=== PATIENT | female | born 1995 | race Caucasian/White ===

== ENCOUNTER 2016-12-02 14:57 | Observation (INO) | payer BC ==
[2016-12-02] MEDS ORDERED: Zolpidem 5 MG Tab PO ONE (18:21)
[2016-12-02] MEDS ORDERED: Lactated Ringers 1,000 ML IV SCH ×2 (18:30→19:32)
[2016-12-02] MEDS ORDERED: Acetaminophen 325 MG Tab PO PRN (18:32)
[2016-12-02] MEDS ORDERED: Sodium Chloride 0.9% 10 ML Syringe FLUSH PRN (18:32)
[2016-12-02] MEDS ORDERED: Ondansetron 4 MG/2 ML SDV IV PRN (18:32)
--- NOTE | 2016-12-02 18:43 | PCM.PNLD ---
Labor Progress Note - VS & Meds Vital Signs: Last Vital Signs Temp 36.4 C 12/02/16 17:30 Pulse 80 12/02/16 18:20 Resp 16 12/02/16 18:20 BP 135/69 12/02/16 18:20 Pulse Ox 98 12/02/16 18:20 Active Medications: Current Medications Acetaminophen (Tylenol) 650 mg PO Q4H PRN PRN Reason: Pain (Mild 1-3) and fever Lactated Ringer's (Ringers, Lactated) 1,000 mls @ 999 mls/hr IV BOLUS SOPHY Ondansetron HCl (Zofran) 4 mg IV Q4H PRN PRN Reason: Nausea/Vomiting Sodium Chloride (Saline Flush) 10 ml FLUSH ASDIRECTED PRN PRN Reason: Keep Vein Open Zolpidem Tartrate (Ambien) 10 mg PO ONETIME ONE Stop: 12/02/16 18:22 - Uterine Contractions Uterine Monitoring Mode: External [place] Uterine Resting Tone: Soft - Monitoring Monitor Mode: External Ultrasound - Labor Progress (Free Text) Labor Progress: 12/02/2016 20 yo at 38 3/7 wks gestation came into clinic for routine visit-stated baby had not been moving today. NST done nonreactive BPP done 12/21-decided to send to L&D for monitoring and fluids and will repeat NST throughout night and repeat BPP in am LR bolus and 125ml/hour after FHT monitor NST for 20 minutes every 4hours with VS Up ad cali General Diet
--- NOTE | 2016-12-03 08:55 | PCM.PNLD ---
Labor Progress Note - VS & Meds Vital Signs: Last Vital Signs Temp 36.4 C 12/03/16 03:15 Pulse 79 12/03/16 03:15 Resp 18 12/03/16 03:15 BP 121/65 12/03/16 03:15 Pulse Ox 97 12/03/16 03:15 Active Medications: Current Medications Acetaminophen (Tylenol) 650 mg PO Q4H PRN PRN Reason: Pain (Mild 1-3) and fever Lactated Ringer's (Ringers, Lactated) 1,000 mls @ 125 mls/hr IV ASDIRECTED SOPHY Last Admin: 12/02/16 18:30 Dose: 125 mls/hr Ondansetron HCl (Zofran) 4 mg IV Q4H PRN PRN Reason: Nausea/Vomiting Sodium Chloride (Saline Flush) 10 ml FLUSH ASDIRECTED PRN PRN Reason: Keep Vein Open Discontinued Medications Lactated Ringer's (Ringers, Lactated) 1,000 mls @ 999 mls/hr IV BOLUS [facility] Stop: 12/02/16 19:31 Last Admin: 12/02/16 17:30 Dose: 999 mls/hr Zolpidem Tartrate (Ambien) 10 mg PO ONETIME ONE Stop: 12/02/16 18:22 Last Admin: 12/03/16 05:36 Dose: Not Given - Uterine Contractions Uterine Monitoring Mode: External [place] Contraction Frequency (min): none noted Contraction Duration (sec): 70 Uterine Resting Tone: Soft - Monitoring Monitor Mode: External Ultrasound Heart Rate (FHR) Variability: Moderate (6-25 bmp) Accelerations: Present, 15x15 Decelerations: None Strip Review: Category I - Labor Progress (Free Text) Labor Progress: 12/03/2016 Patient feeling much better throughout night with IV fluids. FHTs reactive and VSS all night Patient states baby is moving all over. We will discharge home and have patient see me for OB check on Friday as long as BPP is improved
[2016-12-03 09:18] VITALS: BP 137/72
--- NOTE | 2016-12-03 09:19 | US ---
OB Ltd 1 or More Fetus, BPP wo NST INDICATION: position. FINDINGS: Single live intrauterine gestation in cephalic presentation. Placenta is situated anterior . Cervix measures 4.9 cm in length. Biophysical profile score is 4/8. No points were given for gross body movement or tone. heart rate measures 128 bpm. YOUSUF measures 13.4 cm. IMPRESSION: 1. Biophysical profile score 4/8. Consider close interval ultrasound follow-up.
--- NOTE | 2016-12-03 09:20 | US ---
BPP w NST INDICATION: BPP 4/8 on 12/03/2016 FINDINGS: Comparison ultrasound 12/02/2016. Single live IUP. Biophysical profile score 8/8. YOUSUF measu res 11 cm. heart rate measures 118 bpm. IMPRESSION: Biophysical profile score 8/8.
== END 2016-12-03 09:38 | disposition home or self-care (01) ==
LOC: JP.US 14:57 → JP.OB 16:47
PROVIDERS: ADMIT Advanced Practice Midwife; ATTEND Advanced Practice Midwife
DX: Z34.03 Encounter for supervision of normal first pregnancy, third trimester (principal); O36.8130 Decreased fetal movements, third trimester, not applicable or unspecified; Z79.899 Other long term (current) drug therapy; O26.899 Other specified pregnancy related conditions, unspecified trimester; M54.5 Low back pain
CPT/HCPCS: 36415; 76815; 76818; 76819; 80053; 80305; 81001; 85027; 96365; 99211; G0378; J7120

== ENCOUNTER 2016-12-17 11:32 | Inpatient (IN) | payer BC ==
[2016-12-17] MEDS ORDERED: Lactated Ringers 500 ML IV ONE (12:29)
[2016-12-17] MEDS ORDERED: Acetaminophen 325 MG Tab PO PRN (12:29)
[2016-12-17] MEDS ORDERED: Ondansetron 4 MG/2 ML SDV IV PRN (12:29)
[2016-12-17] MEDS ORDERED: Sodium Chloride 0.9% 10 ML Syringe FLUSH PRN (12:29)
[2016-12-17] MEDS ORDERED: fentaNYL 100 MCG/2 ML SDV IVPUSH PRN (12:29)
[2016-12-17] MEDS ORDERED: Calcium Carbonate 500 MG Tab.Chew PO PRN (12:29)
[2016-12-17] MEDS ORDERED: Lactated Ringers 1,000 ML IV ONE (12:35)
--- NOTE | 2016-12-17 12:43 | PCM.LDHP ---
L&D History of Present Illness - General Date of Service: 12/17/16 (YURY-12/14/2016) Admit Problem/Dx: Patient Status Order with Admit Dx/Problem 12/17/16 12:29 Patient Status [ADT] Routine Admission Diagnosis/Problem Admission Diagnosis/Problem Source of Information: Patient History Limitations: Reports: No limitations - Related Data Allergies/Adverse Reactions: Allergies Allergy/AdvReac Type Severity Reaction Status Date / Time No Known Allergies Allergy Verified 12/02/16 17:01 Home Medications: Home Meds PNV95/Ferrous Fumarate/FA [ Tablet] 1 tab PO DAILY 12/02/16 [History] Past Medical History - Past Health History Medical/Surgical History: Denies Medical/Surgical History PR[employer]ER History: Reports: Dermatologic History: Reports: Other (see below) Other Dermatologic History: Ellers Danelos Syndrome - Infectious Disease History Infectious Disease History: Reports: Chicken pox - Past Surgical History HEENT Surgical History: Reports: Oral surgery, Other (see below) Other HEENT Surgeries/Procedures: wisdom teeth Social & Family History - Family History Family Medical History: Noncontributory - Tobacco Use Smoking Status *Q: Current Every Day Smoker Years of Tobacco use: 3 Packs/Tins Daily: 0.2 Used Tobacco, but Quit: No Second Hand Smoke Exposure: Yes - Caffeine Use Caffeine Use: Reports: Soda Caffeine Use Comment: 2/day - Recreational Drug Use Recreational Drug Use: Yes Drug Use in Last 12 Months: Yes Recreational Drug Type: Reports: Marijuana/Hashish Recreational Drug Use Frequency: Rarely H&P Review of Systems - Review of Systems: Review Of Systems: See Below General: Reports: no symptoms HEENT: Reports: no symptoms Pulmonary: Reports: No Symptoms Cardiovascular: Reports: no symptoms Gastrointestinal: Reports: No symptoms Genitourinary: Reports: no symptoms Musculoskeletal: Reports: no symptoms Skin: Reports: no symptoms Psychiatric: Reports: no symptoms Neurological: Reports: No Symptoms Hematologic/Lymphatic: Reports: no symptoms Immunologic: Reports: no symptoms L&D Exam - Exam Exam: See Below - Vital Signs Weight: 78.018 kg - OB Specific Contraction Intensity: Moderate to Strong movement: active heart tones: present Heart Rate (FHR) Variability: Moderate (6-25 bmp) Presentation: Vertex Estimated Weight: 7lbs - Granados Score Granados Score Cervix Position: Anterior Granados Score Consistency: Soft Granados Score Effacement: >80% Granados Score Dilation: 3-4 cm Granados Score 's Station: -1 ,0 Granados Score Total: 11 - Exam General: alert, oriented HEENT: PERRLA, Conjunctiva clear, EACs clear, EOMI, Hearing intact, Mucosa moist & pink, Nares patent, Normal nasal septum, Posterior pharynx clear, Pupils equal, Pupils reactive, TMs clear Neck: supple, trachea midline Lungs: Clear to auscultation, Normal respiratory effort Cardiovascular: regular rate, regular rhythm Abdomen: normal bowel sounds, soft Genitourinary: Normal external exam Back Exam: normal inspection, full range of motion Extremities: normal inspection Skin: warm, dry, intact Neurological: cranial nerves intact, reflexes equal bilateral DTR: 2+: patella (L), patella (R) Psychiatric: alert, normal affect, normal mood - Problem List (1) Active labor SNOMED Code(s): 80206745 ICD Code: [id number] - Status: Acute Current Visit: Yes (2) History of biophysical profile with non-stress test SNOMED Code(s): 936049153 ICD Code: Z92.89 - PERSONAL HISTORY OF OTHER MEDICAL TREATMENT Status: Acute Current Visit: No (3) SNOMED Code(s): 93026279 ICD Code: Z33.1 - STATE, INCIDENTAL Status: Acute Current Visit : No Qualifiers: Weeks of gestation: 40 weeks Qualified Code(s): Z3A.40 - 40 weeks gestation of (4) Positive GBS test SNOMED Code(s): 8059038445412, 5510582544426 ICD Code: B95.1 - STREPTOCOCCUS, GROUP B, CAUSING DISEASES CLASSD ELSWHR Status: Acute Current Visit: Yes Problem List Initiated/Reviewed/Updated: Yes Orders Last 24hrs: Active Orders 24 hr Category Date Time Status Patient Status [ADT] Routine ADT 12/17/16 12:29 Ordered Ambulate [RC] PER UNIT ROUTINE Care 12/17/16 12:29 Ordered Bathe Patient [RC] ASDIRECTED Care 12/17/16 12:29 Ordered Communication Order [RC] ASDIRECTED Care 12/17/16 12:29 Ordered Heart Tones [RC] PER UNIT ROUTINE Care 12/17/16 12:29 Ordered Local Anesthetic Infusion Pump [RC] ASDIRECTED Care 12/17/16 12:35 Ordered May Shower [RC] ASDIRECTED Care 12/17/16 12:29 Ordered Notify Provider Vital Signs [RC] PRN Care 12/17/16 12:29 Ordered Notify Provider [RC] PRN Care 12/17/16 12:29 Ordered OB Check [OM.PC] Click to Edit Care 12/17/16 11:38 Ordered PCEA Epidural [RC] ASDIRECTED Care 12/17/16 12:35 Ordered Up ad [place]i [RC] ASDIRECTED Care 12/17/16 12:29 Ordered VTE/DVT Education [RC] Click to Edit Care 12/17/16 12:32 Ordered Vital Signs [RC] PER UNIT ROUTINE Care 12/17/16 12:29 Ordered CBC WITH AUTO DIFF [HEME] Routine Lab 12/17/16 12:29 Ordered UA W/MICROSCOPIC [URIN] Routine Lab 12/17/16 11:39 Uncollected Acetaminophen [Tylenol] Med 12/17/16 12:29 Ordered 650 mg PO Q4H PRN Calcium Carbonate [Tums] Med 12/17/16 12:29 Ordered 1,000 mg PO Q2HR PRN Lactated Ringers [Ringers, Lactated] 1,000 ml Med 12/17/16 12:35 Ordered IV .BOLUS Lactated Ringers [Ringers, Lactated] 500 ml Med 12/17/16 12:29 Ordered IV .BOLUS Ondansetron [Zofran] Med 12/17/16 12:29 Ordered 4 mg IV Q4H PRN Penicillin G Potassium [Pfizerpen] 2.5 millunits Med 12/17/16 16:45 Ordered Sodium Chloride 0.9% [Normal Saline] 100 ml IV Q4H Penicillin G Potassium [Pfizerpen] 5 millunits Med 12/17/16 12:33 Ordered Sodium Chloride 0.9% [Normal Saline] 100 ml IV ONETIME Sodium Chloride 0.9% [Saline Flush] Med 12/17/16 12:29 Ordered 10 ml FLUSH ASDIRECTED PRN fentaNYL [Sublimaze] Med 12/17/16 12:29 Ordered 100 mcg IVPUSH Q1H PRN DVT/VTE Prophylaxis Reflex [OM.PC] Routine Oth 12/17/16 12:29 Ordered Epidural Catheter Management [OM.PC] Routine Oth 12/17/16 12:35 Ordered Saline Lock Insert [OM.PC] Routine Oth 12/17/16 12:29 Ordered Resuscitation Status Routine Resus Stat 12/17/16 12:29 Ordered Medication Orders Acetaminophen (Tylenol) 650 mg PO Q4H PRN PRN Reason: Pain (Mild 1-3) and fever Calcium Carbonate/Glycine (Tums) 1,000 mg PO Q2HR PRN PRN Reason: Indigestion Fentanyl (Sublimaze) 100 mcg IVPUSH Q1H PRN PRN Reason: Pain (moderate 4-6) Lactated Ringer's (Ringers, Lactated) 500 mls @ 500 mls/hr IV .BOLUS ONE Stop: 12/17/16 13:28 Penicillin G Potassium 5 (millunits/ Sodium Chloride) 100 mls @ 100 mls/hr IV ONETIME ONE Stop: 12/17/16 13:32 Penicillin G Potassium 2.5 (millunits/ Sodium Chloride) 100 mls @ 100 mls/hr IV Q4H SOPHY Ondansetron HCl (Zofran) 4 mg IV Q4H PRN PRN Reason: Nausea/Vomiting Sodium Chloride (Saline Flush) 10 ml FLUSH ASDIRECTED PRN PRN Reason: Keep Vein Open Assessment/Plan Comment:: 12/17/2016 20 yo presented to L&D in active labor SVE 3-/0 with bulgy bag Patient cynthia regularly with a category one strip O positive GBS positive Hep B negative HIV negative RPR nonreactive +THC in Plan- Continue to monitor active labor Continue to monitor FHT per protocol Pain medication or epidural per patient request GBS antibiotics PCN G per protocol CBC now UDS now Patient can be up ad cali till epidural Patient can eat regular diet till epidural Anticipate a vaginal delivery
[2016-12-17] MEDS ORDERED: Penicillin G Potassium 5 MILLUNITS in Sodium Chloride 0.9% 100 ML IV ONE ×4 (13:30)
[2016-12-17] MEDS ORDERED: Oxytocin 10 Units/1 ML SDV ONE (14:23)
[2016-12-17] MEDS ORDERED: fentaNYL 100 MCG/2 ML SDV ONE (14:23)
[2016-12-17] MEDS ORDERED: Mineral Oil 10 ML Bottle ONE (14:24)
[2016-12-17] MEDS ORDERED: Lidocaine 1% 50 ML MDV ONE (14:24)
[2016-12-17] MEDS ORDERED: Ropivacaine 100 ML ONE ×2 (14:24→14:40)
[2016-12-17] MEDS ORDERED: Naloxone 0.4 MG/ML SDV ONE (14:24)
[2016-12-17] MEDS ORDERED: Lactated Ringers 1,000 ML IV SCH (15:00)
[2016-12-17] MEDS: ePHEDrine 50 MG/ML SDV ONE ×3 (16:02→19:41)
[2016-12-17] MEDS ORDERED: Naloxone 0.4 MG/ML SDV IVPUSH PRN (16:06)
[2016-12-17] MEDS ORDERED: ePHEDrine 50 MG/ML SDV IVPUSH PRN (16:06)
[2016-12-17] MEDS ORDERED: Ropivacaine 100 ML EPIDUR SCH (16:06)
[2016-12-17] MEDS: Penicillin G Potassium 2.5 MILLUNITS in Sodium Chloride 0.9% 50 ML IV SCH ×2 (16:55→23:02)
[2016-12-17] MEDS ORDERED: Penicillin G Potassium 2.5 MILLUNITS in Sodium Chloride 0.9% 100 ML IV SCH (17:30)
--- NOTE | 2016-12-17 17:37 | PCM.PNLD ---
Labor Progress Note - VS & Meds Vital Signs: Last Vital Signs Temp 36.3 C 12/17/16 17:00 Pulse 79 12/17/16 17:00 Resp 16 12/17/16 17:00 BP 129/69 12/17/16 17:00 Pulse Ox 96 12/17/16 17:00 Active Medications: Current Medications Acetaminophen (Tylenol) 650 mg PO Q4H PRN PRN Reason: Pain (Mild 1-3) and fever Calcium Carbonate/Glycine (Tums) 1,000 mg PO Q2H PRN PRN Reason: Indigestion Ephedrine Sulfate (Ephedrine Sulfate) 5 - 10 mg IVPUSH ASDIRECTED PRN PRN Reason: IF SYSTOLIC BP LESS THAN 100 Fentanyl (Sublimaze) 100 mcg IVPUSH Q1H PRN PRN Reason: Pain (moderate 4-6) Penicillin G Potassium 2.5 (millunits/ Sodium Chloride) 50 mls @ 100 mls/hr IV Q4H SOPHY Last Admin: 12/17/16 16:55 Dose: 100 mls/hr Ropivacaine (Naropin 0.2%) 100 mls @ 0 mls/hr EPIDUR ASDIRECTED SOPHY; Titrate PRN Reason: Protocol Lactated Ringer's (Ringers, Lactated) 1,000 mls @ 125 mls/hr IV ASDIRECTED SOPHY Naloxone HCl (Narcan) 0.1 mg IVPUSH Q5M PRN PRN Reason: IF RESP RATE LESS THAN 6 Ondansetron HCl (Zofran) 4 mg IV Q4H PRN PRN Reason: Nausea/Vomiting Sodium Chloride (Saline Flush) 10 ml FLUSH ASDIRECTED PRN PRN Reason: Keep Vein Open Discontinued Medications Ephedrine Sulfate (Ephedrine Sulfate) Confirm Administered Dose 50 mg .ROUTE .STK-MED ONE Stop: 12/17/16 14:24 Fentanyl (Sublimaze) Confirm Administered Dose 100 mcg .ROUTE .STK-MED ONE Stop: 12/17/16 14:24 Lactated Ringer's (Ringers, Lactated) 500 mls @ 500 mls/hr IV .BOLUS ONE Stop: 12/17/16 13:28 Last Admin: 12/17/16 13:30 Dose: 500 mls/hr Lactated Ringer's (Ringers, Lactated) 1,000 mls @ 999 mls/hr IV .BOLUS ONE Stop: 12/17/16 13:35 Last Admin: 12/17/16 12:35 Dose: 999 mls/hr Penicillin G Potassium 5 (millunits/ Sodium Chloride) 100 mls @ 100 mls/hr IV ONETIME ONE Stop: 12/17/16 14:29 Last Admin: 12/17/16 13:35 Dose: 100 mls/hr Ropivacaine (Naropin 0.2%) Confirm Administered Dose 100 mls @ as directed .ROUTE .STK-MED ONE Stop: 12/17/16 14:25 Ropivacaine (Naropin 0.2%) Confirm Administered Dose 100 mls @ as directed .ROUTE .STK-MED ONE Stop: 12/17/16 14:41 Oxytocin/Sodium Chloride (Pitocin In Ns 20 Units/1,000 Ml) 20 unit in 1,000 mls @ 999 mls/hr IV ONETIME ONE Stop: 12/17/16 17:00 Lidocaine HCl (Xylocaine 1%) Confirm Administered Dose 100 ml .ROUTE .STK-MED ONE Stop: 12/17/16 14:25 Mineral Oil (Muri-Lube) Confirm Administered Dose 10 ml .ROUTE .STK-MED ONE Stop: 12/17/16 14:25 Naloxone HCl (Narcan) Confirm Administered Dose 0.4 mg .ROUTE .STK-MED ONE Stop: 12/17/16 14:25 Oxytocin (Pitocin) Confirm Administered Dose 10 unit .ROUTE .STK-MED ONE Stop: 12/17/16 14:24 - Uterine Contractions Uterine Monitoring Mode: External [place] Contraction Frequency (min): 2-3.5 Contraction Duration (sec): 50-90 Contraction Intensity: Moderate Uterine Resting Tone: Soft - Monitoring Monitor Mode: External Ultrasound Heart Rate (FHR) Variability: Moderate (6-25 bmp) - Vaginal Exam Dilation (cm): 8-9 Effacement (Percent): 100 Station: 0 Cervical Position: Midposition Sterile Vaginal Exam Performed By: Kimmy Farias - Labor Progress (Free Text) Labor Progress: 12/17/2016 SVE-8-9/100/0 AROM @ this time-particulate meconium noted Pain controlled well with epidural Two doses of PCN G in for GBS positive FHTs category one Contraction pattern consistent Continue to monitor FHTs Continue to monitor Ctx pattern Anticipate a vaginal delivery
[2016-12-17] MEDS ORDERED: Methylergonovine 0.2 MG/1 ML Amp IM PRN (19:07)
[2016-12-17] MEDS ORDERED: cefTRIAXone 2 GM in Sodium Chloride 0.9% 50 ML IV ONE (19:07)
[2016-12-17] MEDS ORDERED: Misoprostol 50 MCG (1/2 of 100 MCG) Tab RECTAL ONE (19:07)
[2016-12-17] MEDS ORDERED: Methylergonovine 0.2 MG/1 ML Amp ONE (19:10)
[2016-12-17] MEDS ORDERED: Misoprostol 200 MCG Tab ONE (19:12)
[2016-12-17] MEDS ORDERED: cefTRIAXone 1 GM Vial ONE (19:19)
[2016-12-17] MEDS ORDERED: Sodium Chloride 0.9% 100 ML ONE (19:20)
[2016-12-17] MEDS ORDERED: Docusate Sodium 100 MG Cap PO PRN (19:57)
[2016-12-17] MEDS ORDERED: Lanolin 100% Cream 40 GM Tube TOP PRN (19:57)
[2016-12-17] MEDS ORDERED: Benzocaine 20% Top Spray 56 GM Bottle TOP PRN (19:57)
[2016-12-17] MEDS ORDERED: Witch Hazel Medicated Pads 100/Jar TOP PRN (19:57)
--- NOTE | 2016-12-17 20:20 | PCM.DEL ---
L & D Note - General Info Date of Service: 12/17/16 Mother's Due Date: 12/14/16 - Delivery Note Labor: spontaneous Delivery Outcome: Livebirth Infant Delivery Method: Spontaneous Vaginal Delivery Infant Delivery Mode: Vacuum Extraction Presentation: Left Occiput Anterior (MICHAEL) Nuchal cord: none Anesthesia Type: Epidural Amniotic Fluid Description: Meconium stained Laceration: labial, other (v shaped side wal) Suture type: chromic Suture size: 3-0 Placenta: intact, manual removal Cord: 3 vessels Estimated blood loss: 750 Resuscitation needed: No [place]: bulb syringe, stimulated, warmed, blanket used Post Delivery Events: Hemorrhage Second Stage Interventions: Reports: Second Nurse Reviewed Contraction Pattern, Second Nurse Reviewed Heart Tones, Encouragement Given, Pushing Effectively Delivery Comments (Free Text/Narrative):: 12/17/2016 20 yo G1 now P1 at 40 3/7 wks gestation delivered a viable male @1907 with assist of the vacuum times two pulls with no pop-offs in MICHAEL position. APGARS 9/9/9, Weight 20 inches, double clamped cord and to warmer for assessment for vacuum use and thick meconium Infant bulb suctioned, stimulated, and warmed and began to cry vigorously Placenta then manually removed due to hemorrhage-intact, 3 vessel cord, with little wartons jelly Oxytocin wide open per protocol Methergine IM per protocol Cytotec 800mg rectal per protocol EBL 750ml Large left sidewall repaired in usual fashion with 3.0 vicryl Large right labial repaired in usual fashion with 3.0 vicryl NO lacerations noted of perinium, rectum, or cervix Mother now stable in labor and delivery room with stable skin to skin Vacuum Extractor Progress Note - Alternative Labor Strategies Considered Alternative labor strategies considered:: Reports: yes Strategies considered:: Reports: Contraction intensity adequate, Position changes used to facilitate rotation & descent, Empty bladder, Rest Indications considered:: Reports: yes Indications:: Reports: Suspicion of immediate or potential compromise Time out:: Reports: yes - Patient Prepared Patient prepared:: Reports: yes Informed consent:: Reports: Yes Risks: Reports: yes Risks include:: Reports: Laceration, Shoulder dystocia, Maternal injury, Other Anesthesia/analgesia adequate:: Reports: yes - Probability of Success High probability of success:: Reports: yes weight estimated:: Reports: AGA Patient diabetic:: Reports: no Pelvis adequate:: Reports: yes Asynclitic:: Reports: no - Application Time Maximum application time & number of pop-offs predetermined:: Reports: no Type of vacuum used:: Reports: Cup: Soft Vacuum Extraction: Successful - Exit Strategy Exit strategy available:: Reports: yes - General Info Date of Service: 12/17/16 Admission Dx/Problem (Free Text): Patient Status Order with Admit Dx/Problem 12/17/16 12:29 Patient Status [ADT] Routine Admission Diagnosis/Problem Admission Diagnosis/Problem Functional Status: Reports: pain controlled - Review of Systems General: Reports: No Symptoms HEENT: Reports: no symptoms Pulmonary: Reports: no symptoms Cardiovascular: Reports: No Symptoms Gastrointestinal: Reports: No symptoms Genitourinary: Reports: no symptoms Musculoskeletal: Reports: no symptoms Skin: Reports: no symptoms Neurological: Reports: No Symptoms Psychiatric: Reports: no symptoms - Patient Data Vitals - most recent: Last Vital Signs Temp 36.6 C 12/17/16 18:30 Pulse 69 12/17/16 18:30 Resp 16 12/17/16 18:30 BP 122/72 12/17/16 18:30 Pulse Ox 96 12/17/16 18:30 Weight - most recent: 78.018 kg I&O - last 24 hours: Intake & Output 12/17/16 12/17/16 12/17/16 06:59 14:59 22:59 Intake Total 2098 Output Total 150 Balance 1948 Lab Results last 24 hrs: Laboratory Results - last 24 hr 12/17/16 12/17/16 12/17/16 Range/Units 12:42 13:10 13:10 WBC 16.3 H (4.5-11.0) K/uL RBC 4.08 (3.30-5.50) M/uL Hgb 13.1 (12.0-15.0) g/dL Hct 38.0 (36.0-48.0) % MCV 93 (80-98) fL MCH 32 H (27-31) pg MCHC 35 (32-36) % Plt Count 223 (150-400) K/uL Neut % (Auto) 82 H (36-66) % Lymph % (Auto) 11 L (24-44) % [place] % (Auto) 6 (2-6) % Eos % (Auto) 0 L (2-4) % Baso % (Auto) 0 (0-1) % Urine Color Yellow Urine Appearance Clear Urine pH 7.0 (4.5-8.0) Ur Specific [place] 1.010 (1.008-1.030) Urine Protein Negative (NEGATIVE) mg/dL Urine Glucose (UA) Normal (NEGATIVE) mg/dL Urine Ketones Negative (NEGATIVE) mg/dL Urine Occult Blood Negative (NEGATIVE) Urine Nitrite Negative (NEGATIVE) Urine Bilirubin Negative (NEGATIVE) Urine Urobilinogen 1 (NORMAL) mg/dL Ur Leukocyte Esterase Negative (NEGATIVE) Urine RBC 0-5 (0-5) Urine WBC 0-5 (0-5) Ur Epithelial Cells Moderate Amorphous Sediment Not seen Urine Bacteria Moderate Urine Mucus Moderate Urine Opiates Screen Negative (NEGATIVE) Ur Oxycodone Screen Negative (NEGATIVE) Urine Methadone Screen Negative (NEGATIVE) Ur Propoxyphene Screen Negative (NEGATIVE) Ur Barbiturates Screen Negative (NEGATIVE) Ur Tricyclics Screen Negative (NEGATIVE) Ur Phencyclidine Scrn Negative (NEGATIVE) Ur Amphetamine Screen Negative (NEGATIVE) U Methamphetamines Scrn Negative (NEGATIVE) Urine MDMA Screen Negative (NEGATIVE) U Benzodiazepines Scrn Negative (NEGATIVE) U Cocaine Metab Screen Negative (NEGATIVE) U Marijuana (THC) Screen Positive H (NEGATIVE) Med Orders - Current: Current Medications Acetaminophen (Tylenol) 650 mg PO Q4H PRN PRN Reason: Pain (Mild 1-3) and fever Hydrocodone Bitart/Acetaminophen ([place] 325-5 Mg) 1 - 2 tab PO Q4H PRN PRN Reason: Pain (moderate 4-6) Benzocaine (Clgy-L-Kmexkis 20% [place]) 0 gm TOP Q4H PRN PRN Reason: Perineal Comfort Measure Calcium Carbonate/Glycine (Tums) 1,000 mg PO Q2H PRN PRN Reason: Indigestion Docusate Sodium (Colace) 100 mg PO BID PRN PRN Reason: Constipation Emollient Ointment (Lansinoh Hpa) 1 gm TOP ASDIRECTED PRN PRN Reason: Sore Nipples Ephedrine Sulfate (Ephedrine Sulfate) 5 - 10 mg IVPUSH ASDIRECTED PRN PRN Reason: IF SYSTOLIC BP LESS THAN 100 Fentanyl (Sublimaze) 100 mcg IVPUSH Q1H PRN PRN Reason: Pain (moderate 4-6) Ferrous Sulfate (Ferrous Sulfate) 325 mg PO WITHBREAKFAST [facility] Penicillin G Potassium 2.5 (millunits/ Sodium Chloride) 50 mls @ 100 mls/hr IV Q4H [facility] Last Admin: 12/17/16 16:55 Dose: 100 mls/hr Ropivacaine (Naropin 0.2%) 100 mls @ 0 mls/hr EPIDUR ASDIRECTED [facility]; Titrate PRN Reason: Protocol Lactated Ringer's (Ringers, Lactated) 1,000 mls @ 125 mls/hr IV ASDIRECTED [facility] Last Admin: 12/17/16 17:53 Dose: 125 mls/hr Ceftriaxone Sodium 2 gm/ (Sodium Chloride) 50 mls @ 100 mls/hr IV ONETIME ONE Stop: 12/17/16 19:36 Ibuprofen (Motrin) 600 mg PO Q4H PRN PRN Reason: mild pain or fever Methylergonovine Maleate (Methergine) 0.2 mg IM Q4H PRN PRN Reason: Bleeding Misoprostol (Cytotec) 800 mcg RECTAL ONETIME ONE Stop: 12/17/16 19:08 Naloxone HCl (Narcan) 0.1 mg IVPUSH Q5M PRN PRN Reason: IF RESP RATE LESS THAN 6 Ondansetron HCl (Zofran) 4 mg IV Q4H PRN PRN Reason: Nausea/Vomiting Prenat Multivit/Geospatial Technologist/Iron/Folic Ac ( Plus Iron) 1 each PO DAILY [facility] Sodium Chloride (Saline Flush) 10 ml FLUSH ASDIRECTED PRN PRN Reason: Keep Vein Open [place] (Tucks) 1 pad TOP ASDIRECTED PRN PRN Reason: Hemorrhoids Discontinued Medications Ceftriaxone Sodium (Rocephin) Confirm Administered Dose 2 gm .ROUTE .STK-MED ONE Stop: 12/17/16 19:20 Last Admin: 12/17/16 19:29 Dose: 2 gm Ephedrine Sulfate (Ephedrine Sulfate) Confirm Administered Dose 50 mg .ROUTE .STK-MED ONE Stop: 12/17/16 14:24 Last Admin: 12/17/16 19:41 Dose: Not Given Fentanyl (Sublimaze) Confirm Administered Dose 100 mcg .ROUTE .STK-MED ONE Stop: 12/17/16 14:24 Last Admin: 12/17/16 19:41 Dose: Not Given Lactated Ringer's (Ringers, Lactated) 500 mls @ 500 mls/hr IV .BOLUS ONE Stop: 12/17/16 13:28 Last Admin: 12/17/16 13:30 Dose: 500 mls/hr Lactated Ringer's (Ringers, Lactated) 1,000 mls @ 999 mls/hr IV .BOLUS ONE Stop: 12/17/16 13:35 Last Admin: 12/17/16 12:35 Dose: 999 mls/hr Penicillin G Potassium 5 (millunits/ Sodium Chloride) 100 mls @ 100 mls/hr IV ONETIME ONE Stop: 12/17/16 14:29 Last Admin: 12/17/16 13:35 Dose: 100 mls/hr Ropivacaine (Naropin 0.2%) Confirm Administered Dose 100 mls @ as directed .ROUTE .STK-MED ONE Stop: 12/17/16 14:25 Last Admin: 12/17/16 19:41 Dose: Not Given Ropivacaine (Naropin 0.2%) Confirm Administered Dose 100 mls @ as directed .ROUTE .STK-MED ONE Stop: 12/17/16 14:41 Oxytocin/Sodium Chloride (Pitocin In Ns 20 Units/1,000 Ml) 20 unit in 1,000 mls @ 999 mls/hr IV ONETIME ONE Stop: 12/17/16 17:00 Last Admin: 12/17/16 19:08 Dose: 999 mls/hr Sodium Chloride (Normal Saline) Confirm Administered Dose 100 mls @ as directed .ROUTE .STK-MED ONE Stop: 12/17/16 19:21 Last Admin: 12/17/16 19:42 Dose: Not Given Lidocaine HCl (Xylocaine 1%) Confirm Administered Dose 100 ml .ROUTE .STK-MED ONE Stop: 12/17/16 14:25 Last Admin: 12/17/16 19:42 Dose: Not Given Methylergonovine Maleate (Methergine) Confirm Administered Dose 0.2 mg .ROUTE .STK-MED ONE Stop: 12/17/16 19:11 Last Admin: 12/17/16 19:14 Dose: 0.2 mg Mineral Oil (Muri-Lube) Confirm Administered Dose 10 ml .ROUTE .STK-MED ONE Stop: 12/17/16 14:25 Last Admin: 12/17/16 19:42 Dose: Not Given Misoprostol (Cytotec) Confirm Administered Dose 800 mcg .ROUTE .STK-MED ONE Stop: 12/17/16 19:13 Last Admin: 12/17/16 19:16 Dose: 800 mcg Naloxone HCl (Narcan) Confirm Administered Dose 0.4 mg .ROUTE .STK-MED ONE Stop: 12/17/16 14:25 Last Admin: 12/17/16 19:42 Dose: Not Given Oxytocin (Pitocin) Confirm Administered Dose 10 unit .ROUTE .STK-MED ONE Stop: 12/17/16 14:24 Last Admin: 12/17/16 19:41 Dose: Not Given - Exam General: alert, oriented HEENT: Pupils equal, Pupils reactive, EOMI, Mucous membr. moist/pink Neck: supple Lungs: Clear to auscultation, Normal respiratory effort Cardiovascular: Regular Rate, Regular Rhythm Abdomen: bowel sounds present, soft, no tenderness, no distension (Female) Exam: Normal external exam, Normal speculum exam, Normal bimanual exam, Enlarged uterus, Uterine tenderness, Vaginal bleeding, Vaginal tears ( repaired) Back Exam: normal inspection, full range of motion Extremities: no edema Skin: warm, dry, intact Wound/Incisions: healing well Neurological: no new focal deficit Psy/Mental Status: alert, normal affect, normal mood - Problem List & Annotations (1) Active labor SNOMED Code(s): 57421096 Code(s): NAV2363 - Status: Acute Current Visit: Yes (2) History of biophysical profile with non-stress test SNOMED Code(s): 916073755 Code(s): Z92.89 - PERSONAL HISTORY OF OTHER MEDICAL TREATMENT Status: Acute Current Visit: No (3) SNOMED Code(s): 33911110 Code(s): Z33.1 - STATE, INCIDENTAL Status: Acute Current Visit: No Qualifiers: Weeks of gestation: 40 weeks Qualified Code(s): Z3A.40 - 40 weeks gestation of (4) Positive GBS test SNOMED Code(s): 8919596821144, 7122297659025 Code(s): B95.1 - STREPTOCOCCUS, GROUP B, CAUSING DISEASES [facility] Status: Acute Current Visit: Yes (5) Perineal laceration during delivery SNOMED Code(s): 930307573 Code(s): O70.9 - PERINEAL LACERATION DURING DELIVERY, UNSPECIFIED Status: Acute Current Visit: Yes (6) Thick meconium stained amniotic fluid SNOMED Code(s): 600181904 Code(s): P96.83 - MECONIUM STAINING Status: Acute Current Visit: Yes (7) hemorrhage SNOMED Code(s): 00974210 Code(s): O72.1 - OTHER IMMEDIATE HEMORRHAGE Status: Acute Current Visit: Yes (8) Placenta, retained SNOMED Code(s): 568998462 Code(s): O73.0 - RETAINED PLACENTA WITHOUT HEMORRHAGE Status: Acute Current Visit: Yes Annotation/Comment:: Manual removal done - Problem List Review Problem List Initiated/Reviewed/Updated: Yes - My Orders Last 24 Hours: My Active Orders 12/17/16 11:38 OB Check [OM.PC] Click to Edit 12/17/16 12:29 Patient Status [ADT] Routine Ambulate [RC] PER UNIT ROUTINE Bathe Patient [RC] ASDIRECTED Communication Order [RC] ASDIRECTED Heart Tones [RC] PER UNIT ROUTINE May Shower [RC] ASDIRECTED Notify Provider Vital Signs [RC] PRN Notify Provider [RC] PRN Up ad [place] [RC] ASDIRECTED Vital Signs [RC] PER UNIT ROUTINE Acetaminophen [Tylenol] 650 mg PO Q4H PRN Calcium Carbonate [Tums] 1,000 mg PO Q2H PRN Ondansetron [Zofran] 4 mg IV Q4H PRN Sodium Chloride 0.9% [Saline Flush] 10 ml FLUSH ASDIRECTED PRN fentaNYL [Sublimaze] 100 mcg IVPUSH Q1H PRN DVT/VTE Prophylaxis Reflex [OM.PC] Routine Saline Lock Insert [OM.PC] Routine Resuscitation Status Routine 12/17/16 12:32 VTE/DVT Education [RC] Click to Edit 12/17/16 12:35 Local Anesthetic Infusion Pump [RC] ASDIRECTED PCEA Epidural [RC] ASDIRECTED Epidural Catheter Management [OM.PC] Routine 12/17/16 15:00 Lactated Ringers [Ringers, Lactated] 1,000 ml IV ASDIRECTED 12/17/16 17:30 Penicillin G Potassium [Pfizerpen] 2.5 millunits Sodium Chloride 0.9% [Normal Saline] 50 ml IV Q4H 12/17/16 19:07 Patient Status [ADT] Routine Methylergonovine [Methergine] 0.2 mg IM Q4H PRN Misoprostol [Cytotec] 800 mcg RECTAL ONETIME ONE cefTRIAXone [Rocephin] 2 gm Sodium Chloride 0.9% [Normal Saline] 50 ml IV ONETIME 12/17/16 19:57 Communication Order [RC] ROUTINE Vital Signs [RC] PFP Consult to Home Health [CONS] Routine Acetaminophen/HYDROcodone [[place] 325-5 MG] 1 - 2 tab PO Q4H PRN Benzocaine [Pceu-V-Jydcxdn 20% [place]] See Dose Instructions TOP Q4H PRN Docusate Sodium [Colace] 100 mg PO BID PRN Ibuprofen [Motrin] 600 mg PO Q4H PRN Lanolin [Lansinoh HPA] 1 gm TOP ASDIRECTED PRN [place] [Tucks] 1 pad TOP ASDIRECTED PRN Assess Lochia [WOMSER] Per Unit Routine Assess Uterine Involution [WOMSER] Per Unit Routine 12/17/16 19:59 Ice Therapy [OM.PC] Per Unit Routine Perineal Care [OM.PC] Per Unit Routine Sitz Bath [OM.PC] Per Unit Routine 12/18/16 06:00 CBC WITH AUTO DIFF [HEME] Routine 12/18/16 08:00 Ferrous Sulfate 325 mg PO WITHBREAKFAST 12/18/16 09:00 Vit with Ca/FA/Iron [ Plus Iron] 1 each PO DAILY - Assessment Assessment:: 12/17/2016 20 yo G1 now P1 Normal Vaginal Delivery assisted by vacuum Hemorrhage Manual placenta removal Large left sidewall repaired Large right labial NO lacerations noted of perinium, rectum, or cervix GBS positive treated O positive - Plan Plan:: 12/17/2016 20 yo presented to L&D in active labor SVE 3-/0 with bulgy bag Patient cynthia regularly with a category one strip O positive GBS positive Hep B negative HIV negative RPR nonreactive +THC in Plan- Continue to monitor active labor Continue to monitor FHT per protocol Pain medication or epidural per patient request GBS antibiotics PCN G per protocol CBC now UDS now Patient can be up ad cali till epidural Patient can eat regular diet till epidural Anticipate a vaginal delivery 12/17/2016 Routine Cares Watch bleeding closely CBC in am Rocephin IV-for manual removal Support and encourage Ice, tucks, dermoblast to suture area Iron to be started BID tomorrow Stool softeners BID prn Plan discharge at 48hrs GBS positive
[2016-12-17] MEDS: Acetaminophen/HYDROcodone 325-5 MG Tab PO PRN (21:10)
[2016-12-17] MEDS: Ibuprofen 600 MG Tab PO PRN (21:10)
--- NOTE | 2016-12-17 21:41 | ANES ---
DATE OF SERVICE: 12/17/2016 Ms. Sanford is a 20-year-old female patient, up in the Labor and Delivery unit in active labor. She is approximately 5 cm with her 1st baby and would like a labor epidural. The risk and benefits of the procedure were explained to the patient. She wished to proceed with a labor epidural. She was placed in a sitting position. Her back was prepped x3 with Betadine 1% lidocaine skin local was used. The epidural was placed at L2-3 using a 17-gauge Tuohy needle in loss of resistance technique. The epidural had very good feel throughout. The epidural space was easily identified. A catheter was threaded 12 cm at the skin. There was negative CSF, negative blood, and negative paresthesias noted via the catheter. A 1.5% lidocaine with epinephrine test dose was given and this test dose was negative. The catheter was then secured with Tegaderm and tape and the patient was placed in supine position. A 12 mL bolus of 0.2% ropivacaine was given. Her vital signs remained stable after the bolus and she got good relief. A 0.2% ropivacaine drip was started at 12 mL per hour. She tolerated the procedure very nicely. We will continue to monitor her throughout her Labor and Delivery stay. Rashawn Nunez CRNA /[id number]
[2016-12-18] MEDS: Acetaminophen/HYDROcodone 325-5 MG Tab PO PRN ×4 (00:43→19:38)
[2016-12-18] MEDS: Penicillin G Potassium 2.5 MILLUNITS in Sodium Chloride 0.9% 50 ML IV SCH ×2 (04:06→13:56)
[2016-12-18] MEDS ORDERED: fentaNYL 100 MCG/2 ML SDV ONE (11:30)
[2016-12-18] MEDS ORDERED: Lidocaine 1% 50 ML MDV ONE (13:13)
[2016-12-18] MEDS ORDERED: Bupivacaine 0.5% 50 ML MDV ONE (13:13)
[2016-12-18] MEDS ORDERED: Lidocaine 1% with EPINEPHrine 1:100,000 50 ML MDV ONE (13:13)
[2016-12-18] MEDS ORDERED: Propofol 200 MG/20 ML SDV ONE ×2 (14:14→14:15)
--- NOTE | 2016-12-18 14:34 | PCM.PNPP ---
- General Info Date of Service: 12/18/16 (PPD 1) Admission Dx/Problem (Free Text): Patient Status Order with Admit Dx/Problem 12/17/16 12:29 Patient Status [ADT] Routine Admission Diagnosis/Problem Admission Diagnosis/Problem Functional Status: Reports: pain controlled - Review of Systems General: Reports: No Symptoms HEENT: Reports: no symptoms Pulmonary: Reports: no symptoms Cardiovascular: Reports: No Symptoms Gastrointestinal: Reports: No symptoms Genitourinary: Reports: no symptoms Musculoskeletal: Reports: no symptoms Skin: Reports: no symptoms Neurological: Reports: No Symptoms Psychiatric: Reports: no symptoms - Patient Data Vital Signs - most recent: Last Vital Signs Temp 97.7 F 12/18/16 07:00 Pulse 69 12/18/16 07:00 Resp 14 12/18/16 07:00 BP 109/67 12/18/16 07:00 Pulse Ox 96 12/18/16 07:00 Weight - most recent: 172 lb I&O - last 24 hours: Intake & Output 12/17/16 12/18/16 12/18/16 22:59 06:59 14:59 Intake Total 3401 Output Total 150 Balance 3251 Lab Results - last 24 hrs: Laboratory Results - last 24 hr 12/18/16 Range/Units 05:57 WBC 15.9 H (4.5-11.0) K/uL RBC 3.07 L (3.30-5.50) M/uL Hgb 9.8 L D (12.0-15.0) g/dL Hct 29.1 L (36.0-48.0) % MCV 95 (80-98) fL MCH 32 H (27-31) pg MCHC 34 (32-36) % Plt Count 204 (150-400) K/uL Neut % (Auto) 78 H (36-66) % Lymph % (Auto) 14 L (24-44) % [place] % (Auto) 7 H (2-6) % Eos % (Auto) 1 L (2-4) % Baso % (Auto) 0 (0-1) % Med Orders - Current: Current Medications Acetaminophen (Tylenol) 650 mg PO Q4H PRN PRN Reason: Pain (Mild 1-3) and fever Hydrocodone Bitart/Acetaminophen ([place] 325-5 Mg) 1 - 2 tab PO Q4H PRN PRN Reason: Pain (moderate 4-6) Last Admin: 12/18/16 07:43 Dose: 2 tab Benzocaine ([id number] 20% [place]) 0 gm TOP Q4H PRN PRN Reason: Perineal Comfort Measure Last Admin: 12/17/16 21:11 Dose: 1 spray Calcium Carbonate/Glycine (Tums) 1,000 mg PO Q2H PRN PRN Reason: Indigestion Docusate Sodium (Colace) 100 mg PO BID PRN PRN Reason: Constipation Emollient Ointment (Lansinoh Hpa) 1 gm TOP ASDIRECTED PRN PRN Reason: Sore Nipples Last Admin: 12/17/16 21:11 Dose: 1 applic Fentanyl (Sublimaze) 100 mcg IVPUSH Q1H PRN PRN Reason: Pain (moderate 4-6) Ferrous Sulfate (Ferrous Sulfate) 325 mg PO WITHBREAKFAST SOPHY Lactated Ringer's (Ringers, Lactated) 1,000 mls @ 125 mls/hr IV ASDIRECTED [facility] Last Admin: 12/17/16 17:53 Dose: 125 mls/hr Ibuprofen (Motrin) 600 mg PO Q4H PRN PRN Reason: mild pain or fever Last Admin: 12/17/16 21:10 Dose: 600 mg Methylergonovine Maleate (Methergine) 0.2 mg IM Q4H PRN PRN Reason: Bleeding Naloxone HCl (Narcan) 0.1 mg IVPUSH Q5M PRN PRN Reason: IF RESP RATE LESS THAN 6 Ondansetron HCl (Zofran) 4 mg IV Q4H PRN PRN Reason: Nausea/Vomiting Prenat Multivit/[place]/Iron/Folic Ac ( Plus Iron) 1 each PO DAILY [facility] Sodium Chloride (Saline Flush) 10 ml FLUSH ASDIRECTED PRN PRN Reason: Keep Vein Open [place] (Tucks) 1 pad TOP ASDIRECTED PRN PRN Reason: Hemorrhoids Last Admin: 12/17/16 21:12 Dose: 1 disk Discontinued Medications Bupivacaine HCl (Marcaine 0.5%) Confirm Administered Dose 50 ml .ROUTE .STK-MED ONE Stop: 12/18/16 13:14 Ceftriaxone Sodium (Rocephin) Confirm Administered Dose 2 gm .ROUTE .STK-MED ONE Stop: 12/17/16 19:20 Last Admin: 12/17/16 19:29 Dose: 2 gm Ephedrine Sulfate (Ephedrine Sulfate) Confirm Administered Dose 50 mg .ROUTE .STK-MED ONE Stop: 12/17/16 14:24 Last Admin: 12/17/16 19:41 Dose: Not Given Ephedrine Sulfate (Ephedrine Sulfate) 5 - 10 mg IVPUSH ASDIRECTED PRN PRN Reason: IF SYSTOLIC BP LESS THAN 100 Fentanyl (Sublimaze) Confirm Administered Dose 100 mcg .ROUTE .STK-MED ONE Stop: 12/17/16 14:24 Last Admin: 12/17/16 19:41 Dose: Not Given Fentanyl (Sublimaze) Confirm Administered Dose 100 mcg .ROUTE .STK-MED ONE Stop: 12/18/16 11:31 Lactated Ringer's (Ringers, Lactated) 500 mls @ 500 mls/hr IV .BOLUS ONE Stop: 12/17/16 13:28 Last Admin: 12/17/16 13:30 Dose: 500 mls/hr Lactated Ringer's (Ringers, Lactated) 1,000 mls @ 999 mls/hr IV .BOLUS ONE Stop: 12/17/16 13:35 Last Admin: 12/17/16 12:35 Dose: 999 mls/hr Penicillin G Potassium 5 (millunits/ Sodium Chloride) 100 mls @ 100 mls/hr IV ONETIME ONE Stop: 12/17/16 14:29 Last Admin: 12/17/16 13:35 Dose: 100 mls/hr Penicillin G Potassium 2.5 (millunits/ Sodium Chloride) 50 mls @ 100 mls/hr IV Q4H SOPHY Last Admin: 12/18/16 13:56 Dose: Not Given Ropivacaine (Naropin 0.2%) Confirm Administered Dose 100 mls @ as directed .ROUTE .STK-MED ONE Stop: 12/17/16 14:25 Last Admin: 12/17/16 19:41 Dose: Not Given Ropivacaine (Naropin 0.2%) Confirm Administered Dose 100 mls @ as directed .ROUTE .STK-MED ONE Stop: 12/17/16 14:41 Oxytocin/Sodium Chloride (Pitocin In Ns 20 Units/1,000 Ml) 20 unit in 1,000 mls @ 999 mls/hr IV ONETIME ONE Stop: 12/17/16 17:00 Last Admin: 12/17/16 19:08 Dose: 999 mls/hr Ropivacaine (Naropin 0.2%) 100 mls @ 0 mls/hr EPIDUR ASDIRECTED SOPHY; Titrate PRN Reason: Protocol Sodium Chloride (Normal Saline) Confirm Administered Dose 100 mls @ as directed .ROUTE .STK-MED ONE Stop: 12/17/16 19:21 Last Admin: 12/17/16 19:42 Dose: Not Given Ceftriaxone Sodium 2 gm/ (Sodium Chloride) 50 mls @ 100 mls/hr IV ONETIME ONE Stop: 12/17/16 19:36 Last Admin: 12/18/16 08:22 Dose: Not Given Lidocaine HCl (Xylocaine 1%) Confirm Administered Dose 100 ml .ROUTE .STK-MED ONE Stop: 12/17/16 14:25 Last Admin: 12/17/16 19:42 Dose: Not Given Lidocaine HCl (Xylocaine 1%) Confirm Administered Dose 50 ml .ROUTE .STK-MED ONE Stop: 12/18/16 13:14 Lidocaine/Epinephrine (Xylocaine 1% With Epinephrine 1:100,000) Confirm Administered Dose 50 ml .ROUTE .STK-MED ONE Stop: 12/18/16 13:14 Last Admin: 12/18/16 13:58 Dose: 7 ml Methylergonovine Maleate (Methergine) Confirm Administered Dose 0.2 mg .ROUTE .STK-MED ONE Stop: 12/17/16 19:11 Last Admin: 12/17/16 19:14 Dose: 0.2 mg Mineral Oil (Muri-Lube) Confirm Administered Dose 10 ml .ROUTE .STK-MED ONE Stop: 12/17/16 14:25 Last Admin: 12/17/16 19:42 Dose: Not Given Misoprostol (Cytotec) Confirm Administered Dose 800 mcg .ROUTE .STK-MED ONE Stop: 12/17/16 19:13 Last Admin: 12/17/16 19:16 Dose: 800 mcg Misoprostol (Cytotec) 800 mcg RECTAL ONETIME ONE Stop: 12/17/16 19:08 Last Admin: 12/17/16 20:39 Dose: Not Given Naloxone HCl (Narcan) Confirm Administered Dose 0.4 mg .ROUTE .STK-MED ONE Stop: 12/17/16 14:25 Last Admin: 12/17/16 19:42 Dose: Not Given Oxytocin (Pitocin) Confirm Administered Dose 10 unit .ROUTE .STK-MED ONE Stop: 12/17/16 14:24 Last Admin: 12/17/16 19:41 Dose: Not Given Propofol (Diprivan 20 Ml) Confirm Administered Dose 200 mg .ROUTE .STK-MED ONE Stop: 12/18/16 14:15 Propofol (Diprivan 20 Ml) Confirm Administered Dose 200 mg .ROUTE .STK-MED ONE Stop: 12/18/16 14:16 - Interaction Infant Disposition, : in Room with Family Infant Interaction: Holding Feeding: Breastfed Infant; Nursed Well Support Person: Significant Other - Recovery Exam Fundal Tone: Firm Fundal Level: 2 Fingerbreadths Below Umbilicus Fundal Placement: Right Lochia Amount: Small, Clots/Tissue Present Lochia Color: Rubra/Red Perineum Description: Edematous, Hemorrhoids Other Perinuem Description: icc applied Episiotomy/Laceration: Not Approximated (left vaginal wall tear which was deep, bleeding, repair incomplete) Bladder Status: Voiding Urinary Elimination: Voided - Exam General: alert, oriented HEENT: Pupils equal Neck: supple Lungs: Clear to auscultation, Normal respiratory effort Cardiovascular: Regular Rate, Regular Rhythm Abdomen: bowel sounds present, soft, no tenderness, no distension Extremities: no edema Skin: warm, dry, intact Wound/Incisions: healing well Neurological: no new focal deficit Psy/Mental Status: alert, normal affect, normal mood - Problem List & Annotations (1) Vaginal tear resulting from childbirth SNOMED Code(s): 555443473 Code(s): O71.4 - OBSTETRIC HIGH VAGINAL LACERATION ALONE Status: Acute Current Visit: Yes (2) History of vacuum extraction assisted delivery SNOMED Code(s): 007292935, 221758083 Code(s): Z98.890 - OTHER SPECIFIED POSTPROCEDURAL STATES Status: Acute Current Visit: Yes (3) Normal vaginal delivery SNOMED Code(s): 31963950 Code(s): O80 - ENCOUNTER FOR FULL-TERM UNCOMPLICATED DELIVERY Status: Acute Current Visit: Yes (4) Perineal laceration during delivery SNOMED Code(s): 757606474 Code(s): O70.9 - PERINEAL LACERATION DURING DELIVERY, UNSPECIFIED Status: Acute Current Visit: Yes (5) hemorrhage SNOMED Code(s): 21318555 Code(s): O72.1 - OTHER IMMEDIATE HEMORRHAGE Status: Acute Current Visit: Yes (6) Placenta, retained SNOMED Code(s): 845968558 Code(s): O73.0 - RETAINED PLACENTA WITHOUT HEMORRHAGE Status: Acute Current Visit: Yes Qualifiers: Retained placenta detail: complete placenta Qualified Code(s): O73.0 - Retained placenta without hemorrhage Annotation/Comment:: Manual removal done (7) Thick meconium stained amniotic fluid SNOMED Code(s): 020572227 Code(s): P96.83 - MECONIUM STAINING Status: Acute Current Visit: Yes - Problem List Review Problem List Initiated/Reviewed/Updated: Yes - Assessment Assessment:: 12/17/2016 20 yo G1 now P1 Normal Vaginal Delivery assisted by vacuum Hemorrhage Manual placenta removal Large left sidewall repaired Large right labial NO lacerations noted of perinium, rectum, or cervix GBS positive treated O positive 12/18/16 Assessment this morning, bleeding and more clots then normal. digital exam revealed a vaginal wall tear that was deep and bleeding. 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 Draped and area cleansed. inspection of repairs showed incomplete repair in the left vaginal wall. The apex of the laceration was found and a deep stitch was placed. A row of locking sutures were placed. Homeostasis was achieved. inspection of the other labial tears and perineal tear was done. additions stitches were placed on the left labial tear as is was bleeding. Right side looked great. Clots were removed from the interior uterus, as it continued to expelled 3cm size clots. bleeding and clotting subsided. Patient was stable post procedure CBC in am - Plan Plan:: 12/17/2016 20 yo presented to L&D in active labor SVE 3- with bulgy bag Patient cynthia regularly with a category one strip O positive GBS positive Hep B negative HIV negative RPR nonreactive +THC in Plan- Continue to monitor active labor Continue to monitor FHT per protocol Pain medication or epidural per patient request GBS antibiotics PCN G per protocol CBC now UDS now Patient can be up ad cali till epidural Patient can eat regular diet till epidural Anticipate a vaginal delivery 12/17/2016 Routine Cares Watch bleeding closely CBC in am Rocephin IV-for manual removal Support and encourage Ice, tucks, dermoblast to suture area Iron to be started BID tomorrow Stool softeners BID prn Plan discharge at 48hrs GBS positive 12/18/16 CBC in am monitor for bleeding continue other routine cares 30 minutes was spent in the or doing laceration repair by Farnaz Wynn CNM
[2016-12-18] MEDS: Ferrous Sulfate 325 MG Tab PO SCH (15:01)
[2016-12-18] MEDS: Prenatal Multivitamin with Calcium/Folic Acid/Iron Tab PO SCH (15:01)
[2016-12-18] MEDS: Ibuprofen 600 MG Tab PO PRN (19:38)
[2016-12-19] MEDS: Ibuprofen 600 MG Tab PO PRN ×2 (01:14→08:18)
[2016-12-19 08:11] VITALS: BP 115/70
--- NOTE | 2016-12-19 08:17 | PCM.PNPP ---
- General Info Date of Service: 12/19/16 Admission Dx/Problem (Free Text): Patient Status Order with Admit Dx/Problem 12/17/16 12:29 Patient Status [ADT] Routine Admission Diagnosis/Problem Admission Diagnosis/Problem Functional Status: Reports: pain controlled - Review of Systems General: Reports: No Symptoms HEENT: Reports: no symptoms Pulmonary: Reports: no symptoms Cardiovascular: Reports: No Symptoms Gastrointestinal: Reports: No symptoms Genitourinary: Reports: no symptoms Musculoskeletal: Reports: no symptoms Skin: Reports: no symptoms Neurological: Reports: No Symptoms Psychiatric: Reports: no symptoms - General Info Date of Service: 12/19/16 - Patient Data Vital Signs - most recent: Last Vital Signs Temp 36.4 C 12/19/16 08:00 Pulse 79 12/19/16 08:00 Resp 16 12/19/16 08:00 BP 115/70 12/19/16 08:00 Pulse Ox 99 12/19/16 08:00 Weight - most recent: 78.018 kg Lab Results - last 24 hrs: Laboratory Results - last 24 hr 12/19/16 Range/Units 06:59 WBC 10.9 (4.5-11.0) K/uL RBC 2.57 L (3.30-5.50) M/uL Hgb 8.4 L (12.0-15.0) g/dL Hct 25.1 L (36.0-48.0) % MCV 98 (80-98) fL MCH 33 H (27-31) pg MCHC 34 (32-36) % Plt Count 180 (150-400) K/uL Med Orders - Current: Current Medications Acetaminophen (Tylenol) 650 mg PO Q4H PRN PRN Reason: Pain (Mild 1-3) and fever Hydrocodone Bitart/Acetaminophen ([place] 325-5 Mg) 1 - 2 tab PO Q4H PRN PRN Reason: Pain (moderate 4-6) Last Admin: 12/18/16 19:38 Dose: 2 tab Benzocaine (Glek-M-Yhddsdo 20% [place]) 0 gm TOP Q4H PRN PRN Reason: Perineal Comfort Measure Last Admin: 12/17/16 21:11 Dose: 1 spray Calcium Carbonate/Glycine (Tums) 1,000 mg PO Q2H PRN PRN Reason: Indigestion Docusate Sodium (Colace) 100 mg PO BID PRN PRN Reason: Constipation Last Admin: 12/18/16 15:03 Dose: 100 mg Emollient Ointment (Lansinoh Hpa) 1 gm TOP ASDIRECTED PRN PRN Reason: Sore Nipples Last Admin: 12/17/16 21:11 Dose: 1 applic Fentanyl (Sublimaze) 100 mcg IVPUSH Q1H PRN PRN Reason: Pain (moderate 4-6) Ferrous Sulfate (Ferrous Sulfate) 325 mg PO WITHBREAKFAST [facility] Last Admin: 12/18/16 15:01 Dose: 325 mg Lactated Ringer's (Ringers, Lactated) 1,000 mls @ 125 mls/hr IV ASDIRECTED [facility] Last Admin: 12/17/16 17:53 Dose: 125 mls/hr Ibuprofen (Motrin) 600 mg PO Q4H PRN PRN Reason: mild pain or fever Last Admin: 12/19/16 01:14 Dose: 600 mg Methylergonovine Maleate (Methergine) 0.2 mg IM Q4H PRN PRN Reason: Bleeding Naloxone HCl (Narcan) 0.1 mg IVPUSH Q5M PRN PRN Reason: IF RESP RATE LESS THAN 6 Ondansetron HCl (Zofran) 4 mg IV Q4H PRN PRN Reason: Nausea/Vomiting Prenat Multivit/[place]/Iron/Folic Ac ( Plus Iron) 1 each PO DAILY [facility] Last Admin: 12/18/16 15:01 Dose: 1 each Sodium Chloride (Saline Flush) 10 ml FLUSH ASDIRECTED PRN PRN Reason: Keep Vein Open [place] (Tucks) 1 pad TOP ASDIRECTED PRN PRN Reason: Hemorrhoids Last Admin: 12/17/16 21:12 Dose: 1 disk Discontinued Medications Bupivacaine HCl (Marcaine 0.5%) Confirm Administered Dose 50 ml .ROUTE .STK-MED ONE Stop: 12/18/16 13:14 Ceftriaxone Sodium (Rocephin) Confirm Administered Dose 2 gm .ROUTE .STK-MED ONE Stop: 12/17/16 19:20 Last Admin: 12/17/16 19:29 Dose: 2 gm Ephedrine Sulfate (Ephedrine Sulfate) Confirm Administered Dose 50 mg .ROUTE .STK-MED ONE Stop: 12/17/16 14:24 Last Admin: 12/17/16 19:41 Dose: Not Given Ephedrine Sulfate (Ephedrine Sulfate) 5 - 10 mg IVPUSH ASDIRECTED PRN PRN Reason: IF SYSTOLIC BP LESS THAN 100 Fentanyl (Sublimaze) Confirm Administered Dose 100 mcg .ROUTE .STK-MED ONE Stop: 12/17/16 14:24 Last Admin: 12/17/16 19:41 Dose: Not Given Fentanyl (Sublimaze) Confirm Administered Dose 100 mcg .ROUTE .STK-MED ONE Stop: 12/18/16 11:31 Lactated Ringer's (Ringers, Lactated) 500 mls @ 500 mls/hr IV .BOLUS ONE Stop: 12/17/16 13:28 Last Admin: 12/17/16 13:30 Dose: 500 mls/hr Lactated Ringer's (Ringers, Lactated) 1,000 mls @ 999 mls/hr IV .BOLUS ONE Stop: 12/17/16 13:35 Last Admin: 12/17/16 12:35 Dose: 999 mls/hr Penicillin G Potassium 5 (millunits/ Sodium Chloride) 100 mls @ 100 mls/hr IV ONETIME ONE Stop: 12/17/16 14:29 Last Admin: 12/17/16 13:35 Dose: 100 mls/hr Penicillin G Potassium 2.5 (millunits/ Sodium Chloride) 50 mls @ 100 mls/hr IV Q4H SOPHY Last Admin: 12/18/16 13:56 Dose: Not Given Ropivacaine (Naropin 0.2%) Confirm Administered Dose 100 mls @ as directed .ROUTE .STK-MED ONE Stop: 12/17/16 14:25 Last Admin: 12/17/16 19:41 Dose: Not Given Ropivacaine (Naropin 0.2%) Confirm Administered Dose 100 mls @ as directed .ROUTE .STK-MED ONE Stop: 12/17/16 14:41 Oxytocin/Sodium Chloride (Pitocin In Ns 20 Units/1,000 Ml) 20 unit in 1,000 mls @ 999 mls/hr IV ONETIME ONE Stop: 12/17/16 17:00 Last Admin: 12/17/16 19:08 Dose: 999 mls/hr Ropivacaine (Naropin 0.2%) 100 mls @ 0 mls/hr EPIDUR ASDIRECTED SOPHY; Titrate PRN Reason: Protocol Sodium Chloride (Normal Saline) Confirm Administered Dose 100 mls @ as directed .ROUTE .STK-MED ONE Stop: 12/17/16 19:21 Last Admin: 12/17/16 19:42 Dose: Not Given Ceftriaxone Sodium 2 gm/ (Sodium Chloride) 50 mls @ 100 mls/hr IV ONETIME ONE Stop: 12/17/16 19:36 Last Admin: 12/18/16 08:22 Dose: Not Given Lidocaine HCl (Xylocaine 1%) Confirm Administered Dose 100 ml .ROUTE .STK-MED ONE Stop: 12/17/16 14:25 Last Admin: 12/17/16 19:42 Dose: Not Given Lidocaine HCl (Xylocaine 1%) Confirm Administered Dose 50 ml .ROUTE .STK-MED ONE Stop: 12/18/16 13:14 Lidocaine/Epinephrine (Xylocaine 1% With Epinephrine 1:100,000) Confirm Administered Dose 50 ml .ROUTE .STK-MED ONE Stop: 12/18/16 13:14 Last Admin: 12/18/16 13:58 Dose: 5 ml Methylergonovine Maleate (Methergine) Confirm Administered Dose 0.2 mg .ROUTE .STK-MED ONE Stop: 12/17/16 19:11 Last Admin: 12/17/16 19:14 Dose: 0.2 mg Mineral Oil (Muri-Lube) Confirm Administered Dose 10 ml .ROUTE .STK-MED ONE Stop: 12/17/16 14:25 Last Admin: 12/17/16 19:42 Dose: Not Given Misoprostol (Cytotec) Confirm Administered Dose 800 mcg .ROUTE .STK-MED ONE Stop: 12/17/16 19:13 Last Admin: 12/17/16 19:16 Dose: 800 mcg Misoprostol (Cytotec) 800 mcg RECTAL ONETIME ONE Stop: 12/17/16 19:08 Last Admin: 12/17/16 20:39 Dose: Not Given Naloxone HCl (Narcan) Confirm Administered Dose 0.4 mg .ROUTE .STK-MED ONE Stop: 12/17/16 14:25 Last Admin: 12/17/16 19:42 Dose: Not Given Oxytocin (Pitocin) Confirm Administered Dose 10 unit .ROUTE .STK-MED ONE Stop: 12/17/16 14:24 Last Admin: 12/17/16 19:41 Dose: Not Given Propofol (Diprivan 20 Ml) Confirm Administered Dose 200 mg .ROUTE .STK-MED ONE Stop: 12/18/16 14:15 Propofol (Diprivan 20 Ml) Confirm Administered Dose 200 mg .ROUTE .STK-MED ONE Stop: 12/18/16 14:16 - Interaction Disposition, : in Room with Family Infant Interaction: Holding Feeding: Breastfed ; Nursed Well Support Person: Significant Other - Recovery Exam Fundal Tone: Firm Fundal Level: 2 Fingerbreadths Below Umbilicus Fundal Placement: Midline Lochia Amount: Small Lochia Color: Rubra/Red Perineum Description: Edematous Other Perinuem Description: icc applied Episiotomy/Laceration: None Bladder Status: Voiding Urinary Elimination: Voided - Exam General: alert, oriented HEENT: Pupils equal Neck: supple Lungs: Clear to auscultation, Normal respiratory effort Cardiovascular: Regular Rate, Regular Rhythm Abdomen: bowel sounds present, soft, no tenderness, no distension Extremities: no edema Skin: warm, dry, intact Wound/Incisions: healing well, other (minimal perineal swelling) Neurological: no new focal deficit Psy/Mental Status: alert, normal affect, normal mood - Problem List & Annotations (1) SNOMED Code(s): 04185225 Code(s): Z33.1 - STATE, INCIDENTAL Status: Resolved Current Visit: No Qualifiers: Weeks of gestation: 40 weeks Qualified Code(s): Z3A.40 - 40 weeks gestation of (2) Positive GBS test SNOMED Code(s): 3459568757157, 7493787338078 Code(s): B95.1 - STREPTOCOCCUS, GROUP B, CAUSING DISEASES CLASSD [id number] Status: Acute Current Visit: Yes (3) Perineal laceration during delivery SNOMED Code(s): 895162387 Code(s): O70.9 - PERINEAL LACERATION DURING DELIVERY, UNSPECIFIED Status: Acute Current Visit: Yes (4) Thick meconium stained amniotic fluid SNOMED Code(s): 440681830 Code(s): P96.83 - MECONIUM STAINING Status: Acute Current Visit: Yes (5) hemorrhage SNOMED Code(s): 46159470 Code(s): O72.1 - OTHER IMMEDIATE HEMORRHAGE Status: Acute Current Visit: Yes (6) Placenta, retained SNOMED Code(s): 388405922 Code(s): O73.0 - RETAINED PLACENTA WITHOUT HEMORRHAGE Status: Acute Current Visit: Yes Qualifiers: Retained placenta detail: complete placenta Qualified Code(s): O73.0 - Retained placenta without hemorrhage Annotation/Comment:: Manual removal done - Problem List Review Problem List Initiated/Reviewed/Updated: Yes - My Orders Last 24 Hours: My Active Orders 12/18/16 08:00 Ferrous Sulfate 325 mg PO WITHBREAKFAST 12/18/16 09:00 Vit with Ca/FA/Iron [ Plus Iron] 1 each PO DAILY - Assessment Assessment:: 12/17/2016 20 yo G1 now P1 Normal Vaginal Delivery assisted by vacuum Hemorrhage Manual placenta removal Large left sidewall repaired Large right labial NO lacerations noted of perinium, rectum, or cervix GBS positive treated O positive 12/18/16 Assessment this morning, bleeding and more clots then normal. digital exam revealed a vaginal wall tear that was deep and bleeding. 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 Draped and area cleansed. inspection of repairs showed incomplete repair in the left vaginal wall. The apex of the laceration was found and a deep stitch was placed. A row of locking sutures were placed. Homeostasis was achieved. inspection of the other labial tears and perineal tear was done. additions stitches were placed on the left labial tear as is was bleeding. Right side looked great. Clots were removed from the interior uterus, as it continued to expelled 3cm size clots. bleeding and clotting subsided. Patient was stable post procedure CBC in am 12/19/2016 Day two hemorrhage-now stable, Hgb 8.4 this am Large laceration-now repaired Fundus firm, bleeding minimal Voiding and Passing gas - Plan Plan:: 12/17/2016 20 yo presented to L&D in active labor SVE 3-/0 with bulgy bag Patient cynthia regularly with a category one strip O positive GBS positive Hep B negative HIV negative RPR nonreactive +THC in Plan- Continue to monitor active labor Continue to monitor FHT per protocol Pain medication or epidural per patient request GBS antibiotics PCN G per protocol CBC now UDS now Patient can be up ad cali till epidural Patient can eat regular diet till epidural Anticipate a vaginal delivery 12/17/2016 Routine Cares Watch bleeding closely CBC in am Rocephin IV-for manual removal Support and encourage Ice, tucks, dermoblast to suture area Iron to be started BID tomorrow Stool softeners BID prn Plan discharge at 48hrs GBS positive 12/18/16 CBC in am monitor for bleeding continue other routine cares 30 minutes was spent in the or doing laceration repair by Farnaz Wynn CNM 12/19/2016 Continue routine cares Continue to support and encourage Lots of education on nothing per vagina till check up at 6 weeks Iron to be continued at home Education done on iron rich diet Stool softeners to be continued also at home Discharge today
[2016-12-19] MEDS: Ferrous Sulfate 325 MG Tab PO SCH (10:07)
[2016-12-19] MEDS: Prenatal Multivitamin with Calcium/Folic Acid/Iron Tab PO SCH (10:07)
== END 2016-12-19 14:04 | disposition home or self-care (01) | DRG 541 ==
LOC: JP.OBCHECK 11:32 → JP.OB 12:13 → OBSVTOIN 19:07 → JP.MS 19:07 → JP.OB 19:07
PROVIDERS: ADMIT Advanced Practice Midwife; ATTEND Advanced Practice Midwife
PROC: 00HU33Z Insertion of Infusion Device into Spinal Canal, Percutaneous Approach (ICD-10-PCS; principal; 2016-12-17)
PROC: 10D17ZZ Extraction of Products of Conception, Retained, Via Natural or Artificial Opening (ICD-10-PCS; 2016-12-17)
PROC: 0UQG7ZZ Repair Vagina, Via Natural or Artificial Opening (ICD-10-PCS; 2016-12-17)
PROC: 10907ZC Drainage of Amniotic Fluid, Therapeutic from Products of Conception, Via Natural or Artificial Opening (ICD-10-PCS; 2016-12-17)
PROC: 10D07Z6 Extraction of Products of Conception, Vacuum, Via Natural or Artificial Opening (ICD-10-PCS; 2016-12-17)
PROC: 0UQG7ZZ Repair Vagina, Via Natural or Artificial Opening (ICD-10-PCS; 2016-12-18)
PROC: 0UQM0ZZ Repair Vulva, Open Approach (ICD-10-PCS; 2016-12-18)
DX: O77.0 Labor and delivery complicated by meconium in amniotic fluid (principal); O71.4 Obstetric high vaginal laceration alone; O66.5 Attempted application of vacuum extractor and forceps; Z3A.40 40 weeks gestation of pregnancy; Z37.0 Single live birth; O72.1 Other immediate postpartum hemorrhage; O99.820 Streptococcus B carrier state complicating pregnancy; O99.320 Drug use complicating pregnancy, unspecified trimester; F12.90 Cannabis use, unspecified, uncomplicated
CPT/HCPCS: 36415; 80305; 81001; 85025; 85027; 88307; 99211; A9270-GY; J0696; J2210; J2540; J2590; J2704; J2795; J3010; J7030; J7050; J7120

== ENCOUNTER 2019-03-10 07:46 | Inpatient (IN) | payer MEDICAID ==
[2019-03-10] MEDS ORDERED: Misoprostol 50 MCG (1/2 of 100 MCG) Tab VAG ONE ×2 (08:19→14:53)
[2019-03-10] MEDS ORDERED: Misoprostol 50 MCG (1/2 of 100 MCG) Tab ONE (08:19)
[2019-03-10] MEDS ORDERED: Acetaminophen 325 MG Tab PO PRN (08:25)
[2019-03-10] MEDS ORDERED: Sodium Chloride 0.9% 10 ML Syringe FLUSH PRN ×2 (08:25→18:29)
[2019-03-10] MEDS ORDERED: fentaNYL 100 MCG/2 ML SDV IVPUSH PRN (08:25)
[2019-03-10] MEDS ORDERED: Penicillin G Potassium 5 MILLUNITS in Sodium Chloride 0.9% 100 ML IV ONE ×2 (08:30→08:39)
--- NOTE | 2019-03-10 08:43 | PCM.LDHP ---
L&D History of Present Illness - General Date of Service: 03/10/19 (induction) Admit Problem/Dx: Patient Status Order with Admit Dx/Problem 03/10/19 08:25 Patient Status [ADT] Routine Admission Diagnosis/Problem Admission Diagnosis/Problem Source of Information: Patient History Limitations: Reports: No Limitations - History of Present Illness Introduction:: This 23 year old who is 40 6/7 weeks gestation presents for elective induction at term GBS positive, Rubella immune, HIV neg and ABO O pos. 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 Para: 1 LMP (Approximate): (YURY 03/04/19) Dermatologic History: Reports: Other (See Below) Other Dermatologic History: Ellers Danelos Syndrome - Infectious Disease History Infectious Disease History: Reports: Chicken Pox - Past Surgical History HEENT Surgical History: Reports: Oral Surgery, Other (See Below) Other HEENT Surgeries/Procedures: root canal 03/09/19 Social & Family History - Family History Family Medical History: Noncontributory - Caffeine Use Caffeine Use: Reports: Soda Caffeine Use Comment: 2/day H&P Review of Systems - Review of Systems: Review Of Systems: See Below General: Reports: No Symptoms HEENT: Reports: No Symptoms Pulmonary: Reports: No Symptoms Cardiovascular: Reports: No Symptoms Gastrointestinal: Reports: No Symptoms Genitourinary: Reports: No Symptoms Musculoskeletal: Reports: No Symptoms Skin: Reports: No Symptoms Psychiatric: Reports: No Symptoms Neurological: Reports: No Symptoms Hematologic/Lymphatic: Reports: No Symptoms Immunologic: Reports: No Symptoms L&D Exam - Exam Exam: See Below - Vital Signs Weight: 170 lb - OB Specific Contraction Intensity: none Movement: Active Heart Tones: Present Heart Tones per Min: 145 Heart Rate (FHR) Variability: Moderate (6-25 bmp) Presentation: Vertex Estimated Weight: 6-7 pounds - Granados Score Granados Score Cervix Position: Midposition Granados Score Consistency: Soft Granados Score Effacement: 51-70% Granados Score Dilation: Closed Granados Score Infant's Station: -1 ,0 Granados Score Total: 7 - Exam General: Alert, Oriented HEENT: PERRLA, Mucosa Moist & [place] Neck: Supple, Trachea Midline Lungs: Clear to Auscultation Cardiovascular: Regular Rate, Regular Rhythm GI/Abdominal Exam: Normal Bowel Sounds, Soft Rectal Exam: Normal Exam Genitourinary: Normal external exam, Normal bimanual exam Back Exam: Normal Inspection, Full Range of Motion Extremities: Normal Inspection, No Pedal Edema Skin: Warm Neurological: Cranial Nerves Intact Psychiatric: Alert, Normal Affect, Normal Mood - Patient Data Lab Results Last 24 hrs: Laboratory Results - last 24 hr 03/10/19 Range/Units 08:11 Urine Color Yellow Urine Appearance Slightly cloudy Urine pH 6.0 (4.5-8.0) Ur Specific [place] 1.020 (1.008-1.030) Urine Protein Trace (NEGATIVE) mg/dL Urine Glucose (UA) Normal (NEGATIVE) mg/dL Urine Ketones Negative (NEGATIVE) mg/dL Urine Occult Blood Negative (NEGATIVE) Urine Nitrite Negative (NEGATIVE) Urine Bilirubin Negative (NEGATIVE) Urine Urobilinogen Normal (NORMAL) mg/dL Ur Leukocyte Esterase Moderate (NEGATIVE) Urine RBC 0-5 (0-5) Urine WBC 0-5 (0-5) Ur Epithelial Cells Moderate Amorphous Sediment Not seen Urine Bacteria Few Urine Mucus Rare Urine Other - Problem List (1) Elective induction of labor planned SNOMED Code(s): 195018319 ICD Code: [id number] - Status: Acute Current Visit: Yes (2) SNOMED Code(s): 83299787 ICD Code: Z34.90 - ENCNTR FOR SUPRVSN OF NORMAL , UNSP, UNSP TRIMESTER Status: Acute Current Visit: Yes Qualifiers: Weeks of gestation: 40 weeks Qualified Code(s): Z3A.40 - 40 weeks gestation of (3) Positive GBS test SNOMED Code(s): 839490268, 034586396 ICD Code: B95.1 - STREPTOCOCCUS, GROUP B, CAUSING DISEASES CLASSD ELSWHR Status: Acute Current Visit: Yes Problem List Initiated/Reviewed/Updated: Yes Orders Last 24hrs: Active Orders 24 hr Category Date Time Status Patient Status [ADT] Routine ADT 03/10/19 08:25 Ordered Communication Order [RC] ASDIRECTED Care 03/10/19 08:25 Ordered Heart Tones [RC] PER UNIT ROUTINE Care 03/10/19 08:25 Ordered Non Stress Test [RC] Click to Edit Care 03/10/19 08:25 Ordered Notify Provider Vital Signs [RC] PRN Care 03/10/19 08:25 Ordered Notify Provider [RC] PRN Care 03/10/19 08:25 Ordered Up ad Ashly [RC] ASDIRECTED Care 03/10/19 08:25 Ordered Vital Signs [RC] PER UNIT ROUTINE Care 03/10/19 08:25 Ordered Clear Liquid Diet [DIET] Diet 03/10/19 Lunch Ordered UA W/MICROSCOPIC [URIN] Routine Lab 03/10/19 08:25 Ordered Acetaminophen [Tylenol] Med 03/10/19 08:25 Ordered 650 mg PO Q4H PRN Oxytocin/Normal Saline [Pitocin in NS 20 Units/1,000 ML Med 03/10/19 08:30 Ordered ] 20 unit in 1,000 ml IV ONETIME Penicillin G Potassium [Pfizerpen] 2.5 millunits Med 03/10/19 08:45 Ordered Sodium Chloride 0.9% [Normal Saline] 50 ml IV Q4H Penicillin G Potassium [Pfizerpen] 5 millunits Med 03/10/19 08:30 Ordered Sodium Chloride 0.9% [Normal Saline] 100 ml IV ONETIME Sodium Chloride 0.9% [Saline Flush] Med 03/10/19 08:25 Ordered 10 ml FLUSH ASDIRECTED PRN fentaNYL [Sublimaze] Med 03/10/19 08:25 Ordered 100 mcg IVPUSH Q1H PRN Saline Lock Insert [OM.PC] Routine Oth 03/10/19 08:25 Ordered Resuscitation Status Routine Resus Stat 03/10/19 08:25 Ordered Medication Orders Acetaminophen (Tylenol) 650 mg PO Q4H PRN PRN Reason: Pain (Mild 1-3) and fever Fentanyl (Sublimaze) 100 mcg IVPUSH Q1H PRN PRN Reason: Pain (moderate 4-6) Oxytocin/Sodium Chloride (Pitocin In Ns 20 Units/1,000 Ml) 20 unit in 1,000 mls @ 999 mls/hr IV ONETIME ONE; Protocol Stop: 03/10/19 09:30 Penicillin G Potassium 5 (millunits/ Sodium Chloride) 100 mls @ 200 mls/hr IV ONETIME ONE Stop: 03/10/19 08:59 Penicillin G Potassium 2.5 (millunits/ Sodium Chloride) 50 mls @ 100 mls/hr IV Q4H SOPHY Sodium Chloride (Saline Flush) 10 ml FLUSH ASDIRECTED PRN PRN Reason: Keep Vein Open Assessment/Plan Comment:: 23 year old 40 6/7 weeks for planned induction, actually maybe be cervic ripening today and induction tomorrow depending on how things go. GBS pos, treating Rubella immune HIV neg Plan 50 mcg miso placed at 0822 monitor for labor plan for vaginal delivery
[2019-03-10] MEDS: Lactated Ringers 1,000 ML IV SCH ×2 (12:18→19:15)
--- NOTE | 2019-03-10 12:20 | PCM.PNLD ---
Labor Progress Note - VS & Meds Vital Signs: Last Vital Signs Temp 97.1 F 03/10/19 08:40 Pulse 85 03/10/19 09:40 Resp 16 03/10/19 09:40 BP 119/63 03/10/19 09:40 Pulse Ox 98 03/10/19 09:40 Active Medications: Current Medications Acetaminophen (Tylenol) 650 mg PO Q4H PRN PRN Reason: Pain (Mild 1-3) and fever Fentanyl (Sublimaze) 100 mcg IVPUSH Q1H PRN PRN Reason: Pain (moderate 4-6) Penicillin G Potassium 2.5 (millunits/ Sodium Chloride) 50 mls @ 100 mls/hr IV Q4H SOP[facility] Lactated Ringer's (Ringers, Lactated) 1,000 mls @ 125 mls/hr IV ASDIRECTED SOPHY Sodium Chloride (Saline Flush) 10 ml FLUSH ASDIRECTED PRN PRN Reason: Keep Vein Open Discontinued Medications Oxytocin/Sodium Chloride (Pitocin In Ns 20 Units/1,000 Ml) 20 unit in 1,000 mls @ 999 mls/hr IV ONETIME ONE; Protocol Stop: 03/10/19 09:30 Penicillin G Potassium 5 (millunits/ Sodium Chloride) 100 mls @ 200 mls/hr IV ONETIME ONE Stop: 03/10/19 08:59 Last Admin: 03/10/19 09:33 Dose: 200 mls/hr Misoprostol (Cytotec) Confirm Administered Dose 50 mcg .ROUTE .STK-MED ONE Stop: 03/10/19 08:20 Last Admin: 03/10/19 08:20 Dose: 50 mcg - Uterine Contractions Uterine Monitoring Mode: External [place] Contraction Frequency (min): 0 Contraction Duration (sec): 0 Contraction Intensity: none Uterine Resting Tone: Soft - Monitoring Monitor Mode: Doppler/Auscultation Heart Rate (FHR) Baseline: 140 Heart Rate (FHR) Variability: Moderate (6-25 bmp) Accelerations: Absent Decelerations: None - Vaginal Exam Dilation (cm): 1 Effacement (Percent): 80 Station: 0 Cervical Position: Midposition Sterile Vaginal Exam Performed By: Jaimee Wynn Vaginal Exam Comment: 50mcg cytotec given vaginally - Labor Progress (Free Text) Labor Progress: 03/10/19 cervical change since this morning. baby's strip no accelerations will bolus with fluids. monitor for active labor May repeat Miso at 1500
[2019-03-10] MEDS: Penicillin G Potassium 2.5 MILLUNITS in Sodium Chloride 0.9% 50 ML IV SCH ×3 (13:07→20:44)
--- NOTE | 2019-03-10 14:57 | PCM.PNLD ---
Labor Progress Note - VS & Meds Vital Signs: Last Vital Signs Temp 98.6 F 03/10/19 14:52 Pulse 64 03/10/19 14:52 Resp 16 03/10/19 14:52 BP 115/59 L 03/10/19 14:52 Pulse Ox 95 03/10/19 14:52 Active Medications: Current Medications Acetaminophen (Tylenol) 650 mg PO Q4H PRN PRN Reason: Pain (Mild 1-3) and fever Fentanyl (Sublimaze) 100 mcg IVPUSH Q1H PRN PRN Reason: Pain (moderate 4-6) Penicillin G Potassium 2.5 (millunits/ Sodium Chloride) 50 mls @ 100 mls/hr IV Q4H [facility] Last Admin: 03/10/19 13:07 Dose: 100 mls/hr Lactated Ringer's (Ringers, Lactated) 1,000 mls @ 125 mls/hr IV ASDIRECTED SOPHY Last Admin: 03/10/19 12:18 Dose: 125 mls/hr Misoprostol (Cytotec) 50 mcg VAG ONETIME ONE Stop: 03/10/19 14:54 Sodium Chloride (Saline Flush) 10 ml FLUSH ASDIRECTED PRN PRN Reason: Keep Vein Open Discontinued Medications Oxytocin/Sodium Chloride (Pitocin In Ns 20 Units/1,000 Ml) 20 unit in 1,000 mls @ 999 mls/hr IV ONETIME ONE; Protocol Stop: 03/10/19 09:30 Penicillin G Potassium 5 (millunits/ Sodium Chloride) 100 mls @ 200 mls/hr IV ONETIME ONE Stop: 03/10/19 08:59 Last Admin: 03/10/19 09:33 Dose: 200 mls/hr Misoprostol (Cytotec) Confirm Administered Dose 50 mcg .ROUTE .STK-MED ONE Stop: 03/10/19 08:20 Last Admin: 03/10/19 08:20 Dose: 50 mcg - Uterine Contractions Uterine Monitoring Mode: External [place] Contraction Frequency (min): 40-50 Contraction Duration (sec): 2.5 Contraction Intensity: Mild Uterine Resting Tone: Soft - Monitoring Monitor Mode: Doppler/Auscultation Heart Rate (FHR) Baseline: 140 Heart Rate (FHR) Variability: Moderate (6-25 bmp) Accelerations: Absent Decelerations: None Strip Review: Category II - Vaginal Exam Dilation (cm): 2-3 Effacement (Percent): 80 Station: 0 Cervical Position: Midposition Sterile Vaginal Exam Performed By: Jaimee Wynn Vaginal Exam Comment: 50mcg cytotec given vaginally - Labor Progress (Free Text) Labor Progress: making progress, Cat 2 strip, no accelerations, have done fluids and food. Mother smokes. continue to monitor and work toward vaginal delivery
[2019-03-10] MEDS ORDERED: ePHEDrine 50 MG/ML SDV IVPUSH PRN ×2 (17:57→18:29)
[2019-03-10] MEDS ORDERED: Lactated Ringers 1,000 ML IV ONE (17:57)
[2019-03-10] MEDS ORDERED: diphenhydrAMINE 50 MG/ML SDV IVPUSH PRN ×2 (18:29)
[2019-03-10] MEDS ORDERED: Naloxone 0.4 MG/ML SDV IVPUSH PRN (18:29)
[2019-03-10] MEDS ORDERED: Ropivacaine 100 ML ONE (18:44)
[2019-03-10] MEDS ORDERED: Propofol 200 MG/20 ML SDV ONE (19:00)
[2019-03-10] MEDS ORDERED: Succinylcholine 200 MG/10 ML MDV ONE (19:00)
--- NOTE | 2019-03-10 20:16 | PCM.PNLD ---
Labor Progress Note - VS & Meds Vital Signs: Last Vital Signs Temp 96.6 F 03/10/19 19:00 Pulse 88 03/10/19 19:00 Resp 16 03/10/19 19:00 BP 116/64 03/10/19 19:00 Pulse Ox 99 03/10/19 19:00 Active Medications: Current Medications Acetaminophen (Tylenol) 650 mg PO Q4H PRN PRN Reason: Pain (Mild 1-3) and fever Diphenhydramine HCl (Benadryl) 25 mg IVPUSH Q6H PRN PRN Reason: Itching Diphenhydramine HCl (Benadryl) 50 mg IVPUSH Q6H PRN PRN Reason: Itching Ephedrine Sulfate (Ephedrine Sulfate) 10 mg IVPUSH ASDIRECTED PRN PRN Reason: Hypotension Ephedrine Sulfate (Ephedrine Sulfate) 10 mg IVPUSH ASDIRECTED PRN PRN Reason: Hypotension Fentanyl (Sublimaze) 100 mcg IVPUSH Q1H PRN PRN Reason: Pain (moderate 4-6) Penicillin G Potassium 2.5 (millunits/ Sodium Chloride) 50 mls @ 100 mls/hr IV Q4H [facility] Last Admin: 03/10/19 17:14 Dose: 100 mls/hr Lactated Ringer's (Ringers, Lactated) 1,000 mls @ 125 mls/hr IV ASDIRECTED [facility] Last Infusion: 03/10/19 19:47 Dose: 250 mls/hr Naloxone HCl (Narcan) 0.1 mg IVPUSH ASDIRECTED PRN PRN Reason: Oversedation Sodium Chloride (Saline Flush) 10 ml FLUSH ASDIRECTED PRN PRN Reason: Keep Vein Open Sodium Chloride (Saline Flush) 10 ml FLUSH ASDIRECTED PRN PRN Reason: Keep Vein Open Discontinued Medications Oxytocin/Sodium Chloride (Pitocin In Ns 20 Units/1,000 Ml) 20 unit in 1,000 mls @ 999 mls/hr IV ONETIME ONE; Protocol Stop: 03/10/19 09:30 Penicillin G Potassium 5 (millunits/ Sodium Chloride) 100 mls @ 200 mls/hr IV ONETIME ONE Stop: 03/10/19 08:59 Last Admin: 03/10/19 09:33 Dose: 200 mls/hr Lactated Ringer's (Ringers, Lactated) 1,000 mls @ 999 mls/hr IV .BOLUS ONE Stop: 03/10/19 18:57 Last Admin: 03/10/19 18:00 Dose: 999 mls/hr Ropivacaine (Naropin 0.2%) Confirm Administered Dose 100 mls @ as directed .ROUTE .STK-MED ONE Stop: 03/10/19 18:45 Misoprostol (Cytotec) Confirm Administered Dose 50 mcg .ROUTE .STK-MED ONE Stop: 03/10/19 08:20 Last Admin: 03/10/19 08:20 Dose: 50 mcg Misoprostol (Cytotec) 50 mcg VAG ONETIME ONE Stop: 03/10/19 14:54 Last Admin: 03/10/19 14:53 Dose: 50 mcg - Uterine Contractions Uterine Monitoring Mode: External [place] Contraction Frequency (min): 1-2 Contraction Duration (sec): 40-50 Contraction Intensity: Moderate Uterine Resting Tone: Soft - Monitoring Monitor Mode: Doppler/Auscultation Heart Rate (FHR) Baseline: 140 Heart Rate (FHR) Variability: Moderate (6-25 bmp) Accelerations: Absent Decelerations: None Strip Review: Category II - Vaginal Exam Dilation (cm): 3-4 Effacement (Percent): 80 Station: 0 Cervical Position: Anterior Sterile Vaginal Exam Performed By: Jaimee Wynn Vaginal Exam Comment: cervix anterior, 3-4/80/0 - Labor Progress (Free Text) Labor Progress: epidural and ceja in plce. Will add augmentation with pitocin plan for vaginal delivery later
[2019-03-10] MEDS ORDERED: fentaNYL 250 MCG/5 ML SDV ONE (22:18)
[2019-03-10] MEDS ORDERED: Oxytocin 10 Units/1 ML SDV ONE (22:24)
[2019-03-10] MEDS ORDERED: Rocuronium 50 MG/5 ML Vial ONE (22:24)
[2019-03-10] MEDS ORDERED: EPINEPHrine 1:10,000 1 MG/10 ML Syringe ONE (22:25)
[2019-03-10] MEDS ORDERED: Neostigmine Methylsulfate 1 MG/ML 5 ML Syringe ONE (22:34)
[2019-03-10] MEDS ORDERED: Glycopyrrolate 0.2 MG/ML 5 ML MDV ONE (22:34)
[2019-03-10] MEDS ORDERED: Dexamethasone 4 MG/ML SDV ONE (22:34)
[2019-03-10] MEDS ORDERED: ceFAZolin 1 GM Vial ONE (22:34)
[2019-03-10] MEDS ORDERED: Bupivacaine 0.5% 30 ML SDV ONE (22:34)
[2019-03-10] MEDS ORDERED: Ondansetron 4 MG/2 ML SDV ONE (22:34)
[2019-03-10] MEDS ORDERED: fentaNYL 100 MCG/2 ML SDV ONE ×2 (22:54→23:45)
[2019-03-10] MEDS ORDERED: Ondansetron 4 MG/2 ML SDV IVPUSH PRN (23:18)
--- NOTE | 2019-03-10 23:21 | PCM.PNLD ---
Labor Progress Note - VS & Meds Vital Signs: Last Vital Signs Temp 96.6 F 03/10/19 19:00 Pulse 88 03/10/19 19:00 Resp 16 03/10/19 19:00 BP 116/64 03/10/19 19:00 Pulse Ox 99 03/10/19 19:00 Active Medications: Current Medications Acetaminophen (Tylenol) 650 mg PO Q4H PRN PRN Reason: Pain (Mild 1-3) and fever Diphenhydramine HCl (Benadryl) 25 mg IVPUSH Q6H PRN PRN Reason: Itching Diphenhydramine HCl (Benadryl) 50 mg IVPUSH Q6H PRN PRN Reason: Itching Ephedrine Sulfate (Ephedrine Sulfate) 10 mg IVPUSH ASDIRECTED PRN PRN Reason: Hypotension Ephedrine Sulfate (Ephedrine Sulfate) 10 mg IVPUSH ASDIRECTED PRN PRN Reason: Hypotension Fentanyl (Sublimaze) 100 mcg IVPUSH Q1H PRN PRN Reason: Pain (moderate 4-6) Penicillin G Potassium 2.5 (millunits/ Sodium Chloride) 50 mls @ 100 mls/hr IV Q4H [facility] Last Admin: 03/10/19 20:44 Dose: 100 mls/hr Lactated Ringer's (Ringers, Lactated) 1,000 mls @ 125 mls/hr IV ASDIRECTED SOPHY Last Infusion: 03/10/19 19:47 Dose: 250 mls/hr Oxytocin/Sodium Chloride (Pitocin In Ns 20 Units/1,000 Ml) 20 units in 1,000 mls @ 6 mls/hr IV TITRATE SOPHY; Protocol Last Admin: 03/10/19 20:45 Dose: 2 munits/min, 6 mls/hr Naloxone HCl (Narcan) 0.1 mg IVPUSH ASDIRECTED PRN PRN Reason: Oversedation Sodium Chloride (Saline Flush) 10 ml FLUSH ASDIRECTED PRN PRN Reason: Keep Vein Open Sodium Chloride (Saline Flush) 10 ml FLUSH ASDIRECTED PRN PRN Reason: Keep Vein Open Discontinued Medications Bupivacaine HCl (Marcaine 0.5%) Confirm Administered Dose 30 ml .ROUTE .STK-MED ONE Stop: 03/10/19 22:35 Cefazolin Sodium (Ancef) Confirm Administered Dose 2 gm .ROUTE .STK-MED ONE Stop: 03/10/19 22:35 Dexamethasone (Dexamethasone) Confirm Administered Dose 4 mg .ROUTE .STK-MED ONE Stop: 03/10/19 22:35 Fentanyl (Sublimaze) Confirm Administered Dose 250 mcg .ROUTE .STK-MED ONE Stop: 03/10/19 22:19 Fentanyl (Sublimaze) Confirm Administered Dose 100 mcg .ROUTE .STK-MED ONE Stop: 03/10/19 22:55 Glycopyrrolate (Robinul) Confirm Administered Dose 1 mg .ROUTE .STK-MED ONE Stop: 03/10/19 22:35 Oxytocin/Sodium Chloride (Pitocin In Ns 20 Units/1,000 Ml) 20 unit in 1,000 mls @ 999 mls/hr IV ONETIME ONE; Protocol Stop: 03/10/19 09:30 Penicillin G Potassium 5 (millunits/ Sodium Chloride) 100 mls @ 200 mls/hr IV ONETIME ONE Stop: 03/10/19 08:59 Last Admin: 03/10/19 09:33 Dose: 200 mls/hr Lactated Ringer's (Ringers, Lactated) 1,000 mls @ 999 mls/hr IV .BOLUS ONE Stop: 03/10/19 18:57 Last Admin: 03/10/19 18:00 Dose: 999 mls/hr Ropivacaine (Naropin 0.2%) Confirm Administered Dose 100 mls @ as directed .ROUTE .STK-MED ONE Stop: 03/10/19 18:45 Misoprostol (Cytotec) Confirm Administered Dose 50 mcg .ROUTE .STK-MED ONE Stop: 03/10/19 08:20 Last Admin: 03/10/19 08:20 Dose: 50 mcg Misoprostol (Cytotec) 50 mcg VAG ONETIME ONE Stop: 03/10/19 14:54 Last Admin: 03/10/19 14:53 Dose: 50 mcg Neostigmine Methylsulfate (Neostigmine) Confirm Administered Dose 5 mg .ROUTE .STK-MED ONE Stop: 03/10/19 22:35 Ondansetron HCl (Zofran) Confirm Administered Dose 4 mg .ROUTE .STK-MED ONE Stop: 03/10/19 22:35 Oxytocin (Pitocin) Confirm Administered Dose 30 unit .ROUTE .STK-MED ONE Stop: 03/10/19 22:25 Rocuronium [place] (Zemuron) Confirm Administered Dose 50 mg .ROUTE .STK-MED ONE Stop: 03/10/19 22:25 - Uterine Contractions Uterine Monitoring Mode: External [place] Contraction Frequency (min): 1-2 Contraction Duration (sec): 40-50 Contraction Intensity: Moderate Uterine Resting Tone: Soft - Monitoring Monitor Mode: Doppler/Auscultation Heart Rate (FHR) Baseline: 140 Heart Rate (FHR) Per Doppler: 140 (at 2151) Heart Rate (FHR) Variability: Minimal (0-5 bpm) Accelerations: Absent Decelerations: Late, Prolonged (>2x10 min) Strip Review: Category III - Vaginal Exam Dilation (cm): 6 Effacement (Percent): 80 Station: 0 Cervical Position: Anterior Sterile Vaginal Exam Performed By: Jaimee Wynn Vaginal Exam Comment: cervix anterior, 3-4/80/0 - Labor Progress (Free Text) Labor Progress: called to labor and delivery for heart tone problem at 2126. Arrived at 2139. difficulties obtained heart tone with Doppler and toco. I tried a scalp electrode and was unable to obtain heart tones. Did re-Doppler and obtained heart tones at 140. Called for a status c section. To OR at 2199. In or at 2207 FHT 122. Abdomen cut at 2217. 2218. Cord clamped and cut baby to warmer, purple, mottled, no heart rate no breathing, no tone. quickly extubated and bagged for good air exchange, compressions started, epinephrine via the ET tube followed by a flushed. good PPV and compressions continued. The father of the baby was present for resuscitation. The situation was explained to him and he decided to stop resuscitation efforts at 2231. At no time did we have any improvement in the 's status. He remained with agar of zero. He was extubated wrapped in a blankets and given to dad to hold. The placenta small calcified and the cord was thin without wartons jelly.
[2019-03-10] MEDS ORDERED: Lactated Ringers 1,000 ML IV SCH (23:30)
[2019-03-10] MEDS ORDERED: fentaNYL 50 MCG/HR Transdermal Patch TRDERM SCH (23:45)
[2019-03-10] MEDS: fentaNYL 100 MCG/2 ML SDV IVPUSH PRN (23:51)
[2019-03-11] MEDS: fentaNYL 100 MCG/2 ML SDV IVPUSH PRN ×7 (00:33→15:46)
[2019-03-11] MEDS: Acetaminophen/HYDROcodone 325-5 MG Tab PO PRN ×4 (00:42→18:20)
[2019-03-11] MEDS: Penicillin G Potassium 2.5 MILLUNITS in Sodium Chloride 0.9% 50 ML IV SCH (00:49)
[2019-03-11] MEDS ORDERED: hydrOXYzine HCl 100 MG/2 ML SDV IM PRN (01:26)
--- NOTE | 2019-03-11 04:33 | ANES ---
DATE OF SERVICE: 03/10/2019 I was called to the Labor and Delivery unit by Dr. Jaimee Wynn to evaluate Ms. Sanford for a labor epidural. She is a little overdue and she is approximately 3 cm and in active labor. She wished to proceed with an epidural. She was placed in a sitting position. Her back was prepped x3 with Betadine and 1% lidocaine skin local was used. The epidural was placed at L3-L4 using a 17-gauge Tuohy needle with loss of resistance technique. The epidural had very good feel throughout, and the epidural space was easily identified. There was negative CSF, negative blood, and negative paresthesias noted. Therefore, a catheter was threaded to 13 cm at the skin. There was negative CSF, negative blood, and negative paresthesias noted. Therefore, the 1.5% lidocaine test dose of 3 mL was given. This test dose was negative. The catheter was then secured with Tegaderm and tape, and the patient was placed in the supine position. A 0.2% ropivacaine bolus of 12 mL was given, and the patient had very good relief from the bolus. Therefore, a 0.2% ropivacaine drip was started at 12 mL/h. We will continue to watch her throughout her Labor and Delivery stay. The patient tolerated the procedure very nicely. Vital signs remained stable throughout the procedure, and nurse was with me for the entire procedure. There were no anesthesia complications noted. She will continue to monitor. Rashawn Nunez CRNA /[id number]
--- NOTE | 2019-03-11 06:20 | CRLCR ---
Indication: Surgery count. Technique: AP views of the abdomen and pelvis were obtained. Comparison: None Findings: The bowel gas pattern is nonobstructed. Vertical skin sutures are identified. A linear radiopacity is identified extending overlying the lower thoracic/lumbar spine to the level of L3. This is just to the left of midline at the level of the remainder of the visualized portions of the thoracic spine. Impression: Nonobstructive bowel gas pattern. No definite radiopaque foreign body identified. Dictated by Heidi López MD @ Mar 11 2019 6:17AM Signed by Dr. Heidi López @ Mar 11 2019 6:19AM
[2019-03-11] MEDS ORDERED: Magnesium Sulfate/Water 2 GM in Premix Bag 1 BAG IV ONE (06:23)
--- NOTE | 2019-03-11 06:31 | PCM.SURGPN ---
- General Info Date of Service: 03/11/19 Date of Surgery/Procedure: 03/10/19 POD#: 1 Post-Op Diagnosis: S/P section Functional Status: Reports: Tolerating Diet, Ambulating, Urinating ([place] in place), Incentive Spirometry - Review of Systems General: Reports: No Symptoms HEENT: Reports: No Symptoms Pulmonary: Reports: No Symptoms Cardiovascular: Reports: No Symptoms Gastrointestinal: Reports: Abdominal Pain. Denies: Nausea, Vomiting Genitourinary: Reports: No Symptoms Musculoskeletal: Reports: No Symptoms Skin: Reports: No Symptoms Neurological: Reports: No Symptoms Psychiatric: Reports: No Symptoms - Patient Data Vitals - Most Recent: Last Vital Signs Temp 95.5 F 03/11/19 03:36 Pulse 64 03/11/19 03:48 Resp 18 03/11/19 03:36 BP 120/75 03/11/19 03:48 Pulse Ox 99 03/11/19 03:48 Weight - Most Recent: 175 lb I&O - Last 24 Hours: Intake & Output 03/10/19 03/10/19 03/11/19 14:59 22:59 06:59 Intake Total 150 1550 300 Output Total 200 1000 Balance -50 1550 -700 Lab Results Last 24 Hrs: Laboratory Results - last 24 hr 03/10/19 03/10/19 03/10/19 Range/Units 08:11 09:37 11:05 WBC 12.1 H (4.5-11.0) K/uL RBC 3.64 (3.30-5.50) M/uL Hgb 11.6 L D (12.0-15.0) g/dL Hct 35.2 L (36.0-48.0) % MCV 97 (80-98) fL MCH 32 H (27-31) pg MCHC 33 (32-36) % Plt Count 236 (150-400) K/uL Neut % (Auto) 74 H (36-66) % Lymph % (Auto) 20 L (24-44) % Wilson % (Auto) 5 (2-6) % Eos % (Auto) 1 L (2-4) % Baso % (Auto) 0 (0-1) % Sodium (140-148) mmol/L Potassium (3.6-5.2) mmol/L Chloride (100-108) mmol/L Carbon Dioxide (21-32) mmol/L Anion Gap (5.0-14.0) mmol/L BUN (7-18) mg/dL Creatinine (0.6-1.0) mg/dL Est Cr Clr Drug Dosing mL/min Estimated GFR (MDRD) (>60) Glucose (74-106) mg/dL Calcium (8.5-10.1) mg/dL Magnesium (1.8-2.4) mg/dL Urine Color Yellow Urine Appearance Slightly cloudy Urine pH 6.0 (4.5-8.0) Ur Specific [place] 1.020 (1.008-1.030) Urine Protein Trace (NEGATIVE) mg/dL Urine Glucose (UA) Normal (NEGATIVE) mg/dL Urine Ketones Negative (NEGATIVE) mg/dL Urine Occult Blood Negative (NEGATIVE) Urine Nitrite Negative (NEGATIVE) Urine Bilirubin Negative (NEGATIVE) Urine Urobilinogen Normal (NORMAL) mg/dL Ur Leukocyte Esterase Moderate (NEGATIVE) Urine RBC 0-5 (0-5) Urine WBC 0-5 (0-5) Ur Epithelial Cells Moderate Amorphous Sediment Not seen Urine Bacteria Few Urine Mucus Rare Urine Other Urine Opiates Screen Negative (NEGATIVE) Ur Oxycodone Screen Negative (NEGATIVE) Urine Methadone Screen Negative (NEGATIVE) Ur Propoxyphene Screen Negative (NEGATIVE) Ur Barbiturates Screen Negative (NEGATIVE) Ur Tricyclics Screen Negative (NEGATIVE) Ur Phencyclidine Scrn Negative (NEGATIVE) Ur Amphetamine Screen Negative (NEGATIVE) U Methamphetamines Scrn Negative (NEGATIVE) Urine MDMA Screen Negative (NEGATIVE) U Benzodiazepines Scrn Negative (NEGATIVE) U Cocaine Metab Screen Negative (NEGATIVE) U Marijuana (THC) Screen Presumptive positive H (NEGATIVE) 03/11/19 03/11/19 03/11/19 Range/Units 04:45 04:45 05:35 WBC 22.6 H (4.5-11.0) K/uL RBC 2.96 L (3.30-5.50) M/uL Hgb 9.4 L D (12.0-15.0) g/dL Hct 28.6 L (36.0-48.0) % MCV 97 (80-98) fL MCH 32 H (27-31) pg MCHC 33 (32-36) % Plt Count 214 (150-400) K/uL Neut % (Auto) (36-66) % Lymph % (Auto) (24-44) % Wilson % (Auto) (2-6) % Eos % (Auto) (2-4) % Baso % (Auto) (0-1) % Sodium 136 L (140-148) mmol/L Potassium 4.1 (3.6-5.2) mmol/L Chloride 106 (100-108) mmol/L Carbon Dioxide 20 L (21-32) mmol/L Anion Gap 14.1 H (5.0-14.0) mmol/L BUN 13 D (7-18) mg/dL Creatinine 0.8 (0.6-1.0) mg/dL Est Cr Clr Drug Dosing 89.70 mL/min Estimated GFR (MDRD) > 60 (>60) Glucose 91 (74-106) mg/dL Calcium 8.1 L (8.5-10.1) mg/dL Magnesium 1.3 L (1.8-2.4) mg/dL Urine Color Urine Appearance Urine pH (4.5-8.0) Ur Specific [place] (1.008-1.030) Urine Protein (NEGATIVE) mg/dL Urine Glucose (UA) (NEGATIVE) mg/dL Urine Ketones (NEGATIVE) mg/dL Urine Occult Blood (NEGATIVE) Urine Nitrite (NEGATIVE) Urine Bilirubin (NEGATIVE) Urine Urobilinogen (NORMAL) mg/dL Ur Leukocyte Esterase (NEGATIVE) Urine RBC (0-5) Urine WBC (0-5) Ur Epithelial Cells Amorphous Sediment Urine Bacteria Urine Mucus Urine Other Urine Opiates Screen (NEGATIVE) Ur Oxycodone Screen (NEGATIVE) Urine Methadone Screen (NEGATIVE) Ur Propoxyphene Screen (NEGATIVE) Ur Barbiturates Screen (NEGATIVE) Ur Tricyclics Screen (NEGATIVE) Ur Phencyclidine Scrn (NEGATIVE) Ur Amphetamine Screen (NEGATIVE) U Methamphetamines Scrn (NEGATIVE) Urine MDMA Screen (NEGATIVE) U Benzodiazepines Scrn (NEGATIVE) U Cocaine Metab Screen (NEGATIVE) U Marijuana (THC) Screen (NEGATIVE) Med Orders - Current: Current Medications Acetaminophen (Tylenol) 650 mg PO Q4H PRN PRN Reason: Pain (Mild 1-3) and fever Hydrocodone Bitart/Acetaminophen (Smock 325-5 Mg) 2 tab PO Q4H PRN PRN Reason: Pain (moderate 4-6) Last Admin: 03/11/19 04:25 Dose: 2 tab Diphenhydramine HCl (Benadryl) 25 mg IVPUSH Q6H PRN PRN Reason: Itching Diphenhydramine HCl (Benadryl) 50 mg IVPUSH Q6H PRN PRN Reason: Itching Ephedrine Sulfate (Ephedrine Sulfate) 10 mg IVPUSH ASDIRECTED PRN PRN Reason: Hypotension Fentanyl (Sublimaze) 50 mcg IVPUSH Q1H PRN PRN Reason: Pain (severe 7-10) Last Admin: 03/11/19 04:38 Dose: 50 mcg Hydroxyzine HCl (Vistaril) 75 mg IM Q4H PRN PRN Reason: Pain (moderate 4-6) Last Admin: 03/11/19 01:41 Dose: 75 mg Lactated Ringer's (Ringers, Lactated) 1,000 mls @ 125 mls/hr IV ASDIRECTED SOPHY Last Infusion: 03/10/19 21:35 Dose: 999 mls/hr Oxytocin/Sodium Chloride (Pitocin In Ns 20 Units/1,000 Ml) 20 units in 1,000 mls @ 6 mls/hr IV TITRATE SOPHY; Protocol Last Titration: 03/10/19 21:18 Dose: 0 munits/min, 0 mls/hr Magnesium Sulfate 2 gm/ Premix 50 mls @ 12.5 mls/hr IV ONETIME ONE Stop: 03/11/19 10:22 Naloxone HCl (Narcan) 0.1 mg IVPUSH ASDIRECTED PRN PRN Reason: Oversedation Ondansetron HCl (Zofran) 4 mg IVPUSH Q6H PRN PRN Reason: Nausea/Vomiting Prenat Multivit/[place]/Iron/Folic Ac ( Plus Iron) 1 each PO DAILY SOPHY Sodium Chloride (Saline Flush) 10 ml FLUSH ASDIRECTED PRN PRN Reason: Keep Vein Open Sodium Chloride (Saline Flush) 10 ml FLUSH ASDIRECTED PRN PRN Reason: Keep Vein Open Discontinued Medications Bupivacaine HCl (Marcaine 0.5%) Confirm Administered Dose 30 ml .ROUTE .STK-MED ONE Stop: 03/10/19 22:35 Cefazolin Sodium (Ancef) Confirm Administered Dose 2 gm .ROUTE .STK-MED ONE Stop: 03/10/19 22:35 Dexamethasone (Dexamethasone) Confirm Administered Dose 4 mg .ROUTE .STK-MED ONE Stop: 03/10/19 22:35 Ephedrine Sulfate (Ephedrine Sulfate) 10 mg IVPUSH ASDIRECTED PRN PRN Reason: Hypotension Fentanyl (Sublimaze) 100 mcg IVPUSH Q1H PRN PRN Reason: Pain (moderate 4-6) Fentanyl (Sublimaze) Confirm Administered Dose 250 mcg .ROUTE .STK-MED ONE Stop: 03/10/19 22:19 Fentanyl (Sublimaze) Confirm Administered Dose 100 mcg .ROUTE .STK-MED ONE Stop: 03/10/19 22:55 Fentanyl (Sublimaze) Confirm Administered Dose 100 mcg .ROUTE .STK-MED ONE Stop: 03/10/19 23:46 Glycopyrrolate (Robinul) Confirm Administered Dose 1 mg .ROUTE .STK-MED ONE Stop: 03/10/19 22:35 Oxytocin/Sodium Chloride (Pitocin In Ns 20 Units/1,000 Ml) 20 unit in 1,000 mls @ 999 mls/hr IV ONETIME ONE; Protocol Stop: 03/10/19 09:30 Last Admin: 03/11/19 01:02 Dose: Not Given Penicillin G Potassium 2.5 (millunits/ Sodium Chloride) 50 mls @ 100 mls/hr IV Q4H SOPHY Stop: 03/11/19 00:33 Last Admin: 03/11/19 00:49 Dose: Not Given Penicillin G Potassium 5 (millunits/ Sodium Chloride) 100 mls @ 200 mls/hr IV ONETIME ONE Stop: 03/10/19 08:59 Last Admin: 03/10/19 09:33 Dose: 200 mls/hr Lactated Ringer's (Ringers, Lactated) 1,000 mls @ 999 mls/hr IV .BOLUS ONE Stop: 03/10/19 18:57 Last Admin: 03/10/19 18:00 Dose: 999 mls/hr Ropivacaine (Naropin 0.2%) Confirm Administered Dose 100 mls @ as directed .ROUTE .STK-MED ONE Stop: 03/10/19 18:45 Lactated Ringer's (Ringers, Lactated) 1,000 mls @ 125 mls/hr IV ASDIRECTED [facility] Misoprostol (Cytotec) Confirm Administered Dose 50 mcg .ROUTE .STK-MED ONE Stop: 03/10/19 08:20 Last Admin: 03/10/19 08:20 Dose: 50 mcg Misoprostol (Cytotec) 50 mcg VAG ONETIME ONE Stop: 03/10/19 14:54 Last Admin: 03/10/19 14:53 Dose: 50 mcg Neostigmine Methylsulfate (Neostigmine) Confirm Administered Dose 5 mg .ROUTE .STK-MED ONE Stop: 03/10/19 22:35 Ondansetron HCl (Zofran) Confirm Administered Dose 4 mg .ROUTE .STK-MED ONE Stop: 03/10/19 22:35 Oxytocin (Pitocin) Confirm Administered Dose 30 unit .ROUTE .STK-MED ONE Stop: 03/10/19 22:25 Rocuronium [place] (Zemuron) Confirm Administered Dose 50 mg .ROUTE .STK-MED ONE Stop: 03/10/19 22:25 - Exam Wound/Incisions: Dressing Dry and Intact Quality Assessment: Urine Catheter, DVT Prophylaxis General: Alert, Oriented, Cooperative, No Acute Distress Lungs: Clear to Auscultation, Normal Respiratory Effort Cardiovascular: Regular Rate (Now, prior bigeminy) GI/Abdominal Exam: Normal Bowel Sounds Extremities: Normal Inspection Skin: Warm, Dry Neurological: No New Focal Deficit Psy/Mental Status: Alert, Normal Affect, Normal Mood - Problem List & Annotations (1) Delivery by section SNOMED Code(s): 152933269 Code(s): ICQ6896 - Status: Acute Current Visit: Yes - Problem List Review Problem List Initiated/Reviewed/Updated: Yes - My Orders Last 24 Hours: Active Orders 24 hr Category Date Time Status Patient Status [ADT] Routine ADT 03/10/19 08:25 Active Patient Status [ADT] Routine ADT 03/10/19 23:18 Active Ambulate [RC] ASDIRECTED Care 03/10/19 23:18 Active Ambulate [RC] PER UNIT ROUTINE Care 03/10/19 23:18 Active Antiembolic Devices [RC] .Routine Care 03/10/19 23:22 Active Communication Order [RC] ASDIRECTED Care 03/10/19 08:25 Active DC [place] Catheter [Urinary Catheter Removal] [RC] Per Care 03/11/19 06:24 Ordered Unit Routine Dorsiflex/Plantar flex x 10 [RC] QSHIFT Care 03/10/19 23:18 Active Heart Tones [RC] PER UNIT ROUTINE Care 03/10/19 08:25 Active Head of Bed Elevation [RC] CONTINUOUS Care 03/10/19 23:18 Active Insert Urinary Catheter [OM.PC] ASDIRECTED Care 03/10/19 18:00 Ordered Intake and Output [RC] Q4HR Care 03/10/19 23:19 Active Notify Provider Vital Signs [RC] PRN Care 03/10/19 08:25 Active Oxygen Therapy [RC] ASDIRECTED Care 03/10/19 18:29 Active Oxygen Therapy [RC] PRN Care 03/10/19 23:18 Active Peripheral IV Care [RC] . DIRECTED Care 03/10/19 18:29 Active Pneumonia Education [RC] UPON Care 03/10/19 23:18 Active Pulse Oximetry [RC] ASDIRECTED Care 03/10/19 18:29 Active RT Incentive Spirometry [RC] Q1HWA Care 03/10/19 23:18 Active Turn, Cough, Deep Breathe [RC] Q1HWA Care 03/10/19 23:18 Active Up With Assistance [RC] ASDIRECTED Care 03/10/19 23:18 Active Up ad Ashly [RC] ASDIRECTED Care 03/10/19 23:18 Active Up to Chair [RC] TIDMEALS Care 03/10/19 23:18 Active Urinary Catheter Assessment [RC] ASDIRECTED Care 03/10/19 17:57 Active VTE/DVT Education [RC] Click to Edit Care 03/10/19 23:22 Active Vital Signs [RC] PER UNIT ROUTINE Care 03/10/19 08:25 Active Vital Signs [RC] PER UNIT ROUTINE Care 03/10/19 18:29 Active Vital Signs [RC] PER UNIT ROUTINE Care 03/10/19 23:18 Active Respiratory Care Assess and Treatment [CONS] Routine Cons 03/10/19 23:18 Active Advance Diet Instructions [DIET] Diet 03/11/19 Breakfast Active Clear Liquid Diet [DIET] Diet 03/10/19 Lunch Active Regular Diet [DIET] Diet 03/10/19 Breakfast Active BASIC METABOLIC PANEL,BMP [CHEM] DAILY Lab 03/12/19 05:11 Ordered CBC W/O DIFF,HEMOGRAM [HEME] DAILY Lab 03/12/19 05:11 Ordered Acetaminophen [Tylenol] Med 03/10/19 08:25 Active 650 mg PO Q4H PRN Acetaminophen/HYDROcodone [Smock 325-5 MG] Med 03/10/19 23:18 Active 2 tab PO Q4H PRN Lactated Ringers [Ringers, Lactated] 1,000 ml Med 03/10/19 12:15 Active IV ASDIRECTED Magnesium Sulfate/Water [Magnesium Sulfate in Water Med 03/11/19 06:23 Ordered Premix] 2 gm Premix Bag 1 bag IV ONETIME Naloxone [Narcan] Med 03/10/19 18:29 Active 0.1 mg IVPUSH ASDIRECTED PRN Ondansetron [Zofran] Med 03/10/19 23:18 Active 4 mg IVPUSH Q6H PRN Oxytocin/Normal Saline [Pitocin in NS 20 Units/1,000 ML Med 03/10/19 20:30 Active ] 20 units in 1,000 ml IV TITRATE Vit with Ca/FA/Iron [ Plus Iron] Med 03/11/19 09:00 Active 1 each PO DAILY Sodium Chloride 0.9% [Saline Flush] Med 03/10/19 08:25 Active 10 ml FLUSH ASDIRECTED PRN Sodium Chloride 0.9% [Saline Flush] Med 03/10/19 18:29 Active 10 ml FLUSH ASDIRECTED PRN diphenhydrAMINE [Benadryl] Med 03/10/19 18:29 Active 25 mg IVPUSH Q6H PRN diphenhydrAMINE [Benadryl] Med 03/10/19 18:29 Active 50 mg IVPUSH Q6H PRN ePHEDrine [ePHEDrine sulfate] Med 03/10/19 18:29 Active 10 mg IVPUSH ASDIRECTED PRN fentaNYL [Sublimaze] Med 03/10/19 23:18 Active 50 mcg IVPUSH Q1H PRN hydrOXYzine HCl [Vistaril] Med 03/11/19 01:26 Active 75 mg IM Q4H PRN Abdominal Binder [OM.PC] Per Unit Routine Oth 03/10/19 23:19 Ordered DVT/VTE Prophylaxis Reflex [OM.PC] Per Unit Routine Oth 03/10/19 23:21 Ordered Epidural Catheter Management [OM.PC] Routine Oth 03/10/19 18:29 Ordered Epidural Catheter Management [OM.PC] Urgent Oth 03/10/19 17:57 Ordered Peripheral IV Insertion Pediatric [OM.PC] Routine Oth 03/10/19 18:29 Ordered Saline Lock Insert [OM.PC] Routine Oth 03/10/19 08:25 Ordered Sequential Compression Device [OM.PC] Routine Oth 03/10/19 23:18 Ordered Resuscitation Status Routine Resus Stat 03/10/19 08:25 Ordered Medication Orders Acetaminophen (Tylenol) 650 mg PO Q4H PRN PRN Reason: Pain (Mild 1-3) and fever Hydrocodone Bitart/Acetaminophen (Smock 325-5 Mg) 2 tab PO Q4H PRN PRN Reason: Pain (moderate 4-6) Last Admin: 03/11/19 04:25 Dose: 2 tab Admin: 03/11/19 00:42 Dose: 2 tab Diphenhydramine HCl (Benadryl) 25 mg IVPUSH Q6H PRN PRN Reason: Itching Diphenhydramine HCl (Benadryl) 50 mg IVPUSH Q6H PRN PRN Reason: Itching Ephedrine Sulfate (Ephedrine Sulfate) 10 mg IVPUSH ASDIRECTED PRN PRN Reason: Hypotension Fentanyl (Sublimaze) 50 mcg IVPUSH Q1H PRN PRN Reason: Pain (severe 7-10) Last Admin: 03/11/19 04:38 Dose: 50 mcg Admin: 03/11/19 03:32 Dose: 50 mcg Admin: 03/11/19 02:18 Dose: 50 mcg Admin: 03/11/19 00:33 Dose: 50 mcg Admin: 03/10/19 23:51 Dose: 50 mcg Hydroxyzine HCl (Vistaril) 75 mg IM Q4H PRN PRN Reason: Pain (moderate 4-6) Last Admin: 03/11/19 01:41 Dose: 75 mg Lactated Ringer's (Ringers, Lactated) 1,000 mls @ 125 mls/hr IV ASDIRECTED SOPHY Last Infusion: 03/10/19 21:35 Dose: 999 mls/hr Infusion: 03/10/19 19:47 Dose: 250 mls/hr Admin: 03/10/19 19:15 Dose: 125 mls/hr Infusion: 03/10/19 19:15 Dose: 125 mls/hr Admin: 03/10/19 12:18 Dose: 125 mls/hr Oxytocin/Sodium Chloride (Pitocin In Ns 20 Units/1,000 Ml) 20 units in 1,000 mls @ 6 mls/hr IV TITRATE SOPHY; Protocol Last Titration: 03/10/19 21:18 Dose: 0 munits/min, 0 mls/hr Admin: 03/10/19 20:45 Dose: 2 munits/min, 6 mls/hr Magnesium Sulfate 2 gm/ Premix 50 mls @ 12.5 mls/hr IV ONETIME ONE Stop: 03/11/19 10:22 Naloxone HCl (Narcan) 0.1 mg IVPUSH ASDIRECTED PRN PRN Reason: Oversedation Ondansetron HCl (Zofran) 4 mg IVPUSH Q6H PRN PRN Reason: Nausea/Vomiting Prenat Multivit/[place]/Iron/Folic Ac ( Plus Iron) 1 each PO DAILY SOPHY Sodium Chloride (Saline Flush) 10 ml FLUSH ASDIRECTED PRN PRN Reason: Keep Vein Open Sodium Chloride (Saline Flush) 10 ml FLUSH ASDIRECTED PRN PRN Reason: Keep Vein Open - Assessment Assessment (Free Text/Narrative):: Bigeminy with low magnesium. Eating. section delivered boy with demise who could not be resuscitated. - Plan Plan (Free Text/Narrative):: Change to EDUCATION FACULTY MEMBER. D/C [place]. Magnesium.
[2019-03-11] MEDS ORDERED: fentaNYL/Normal Saline 600 MCG/30 ML PCA Vial IV SCH (06:45)
[2019-03-11] MEDS: fentaNYL/Normal Saline 600 MCG/30 ML PCA Vial IV PRN ×2 (07:17→15:54)
[2019-03-11] MEDS ORDERED: Naloxone 0.4 MG/ML SDV IV PRN (07:17)
--- NOTE | 2019-03-11 07:51 | OR ---
DATE OF PROCEDURE: 03/10/2019 PREOPERATIVE DIAGNOSES: Term , severe distress. POSTOPERATIVE DIAGNOSES: Term , demise, meconium staining, nuchal cord. PROCEDURE: Stat section. SURGEON: Jonah Valdovinos MD SENIOR CHEMICAL PROCESS ENGINEER: Kenzie Wynn, certified nurse experimental box tester. Per ACOG standard of care guidelines, this operation requires a payroll and benefits assistant. ANESTHESIA: Rapid sequence general endotracheal. INDICATION: This 23-year-old white female is in the hospital in labor with her second child. She suddenly was noted to lose heart tones. A request was made for a stat section. I spoke briefly with the mother, as I met her coming to the operating room, and she said she had been explained of the operation and gave her informed consent to proceed. DESCRIPTION OF PROCEDURE: The patient's abdomen was prepped and draped in the usual sterile fashion. A Corado catheter was already in place. I called for time-out before we started the induction. Rapid sequence general endotracheal induction was then given. A midline incision was made and this was carried deep and sharply to the fascia. The fascia was incised and the underlying peritoneum was elevated and incised. The bladder flap was dissected free from the lower uterine segment. A transverse lower uterine segment incision was made, and this was carried sharply to the child. The uterine incision was then extended laterally in both directions bluntly. The child's head was noted be engaged in the canal. It was manually brought back. Kenzie Wynn aspirated his nose and mouth free, the child's body was then delivered. The cord was doubly clamped and she attended to the child. The time from skin incision to clamping was less than a minute. Attempt was made to resuscitate the child, which was unsuccessful. In the meantime, cord blood was collected. The placenta was delivered, it appeared to have a 3-vessel cord. Residual membranes \were removed. IV Pitocin was given by the Anesthesia Service and 10 units of Pitocin was directly injected into the uterine body. The transverse lower uterine segment incision was then closed with a running locking stitch of #1 Vicryl. A second running locking stitch of #1 Vicryl was placed over the first to further bolster the closure. The retrouterine space was irrigated and suctioned dry. The bladder flap was re-attached up over the lower uterine segment with a running stitch of #1 Vicryl. The fascia and peritoneum in the midline were closed with a running stitch of #2 Vicryl. The incision was irrigated and suctioned dry. A couple of 3-0 Vicryl stitches were used to bring the subcutaneous tissue loosely together. Skin mildred were placed to approximate the skin. A sterile dressing was applied. An abdominal x-ray is being taken at this time as counts could not be done preoperatively due to the stat nature of this operation. Jonah Valdovinos MD /[id number] MTDD
[2019-03-11] MEDS: Lactated Ringers 1,000 ML IV SCH (09:33)
[2019-03-11] MEDS: Prenatal Multivitamin with Calcium/Folic Acid/Iron Tab PO SCH (09:34)
[2019-03-11] MEDS ORDERED: LORazepam 2 MG/ML SDV IVPUSH PRN (14:44)
[2019-03-11] MEDS ORDERED: Acetaminophen/oxyCODONE 325-5 MG Tab PO PRN (18:35)
[2019-03-11] MEDS ORDERED: Lactated Ringers 1,000 ML IV SCH (18:45)
[2019-03-11] MEDS: Acetaminophen/oxyCODONE 325-5 MG Tab PO PRN (22:52)
[2019-03-12] MEDS: Acetaminophen/oxyCODONE 325-5 MG Tab PO PRN ×5 (04:00→20:15)
[2019-03-12] MEDS: fentaNYL 100 MCG/2 ML SDV IVPUSH PRN ×2 (09:26→13:35)
--- NOTE | 2019-03-12 10:47 | PCM.SURGPN ---
- General Info Date of Service: 03/12/19 Date of Surgery/Procedure: 03/10/19 POD#: 2 Post-Op Diagnosis: S/P section Functional Status: Reports: Pain Controlled (With oral and IV narcotics), Tolerating Diet, Ambulating, Urinating - Review of Systems General: Reports: No Symptoms HEENT: Reports: No Symptoms Pulmonary: Reports: No Symptoms Cardiovascular: Reports: No Symptoms Gastrointestinal: Reports: Abdominal Pain (Incisional pain controlled with IV and oral narcotics. ). Denies: Flatus, Vomiting Genitourinary: Reports: No Symptoms Musculoskeletal: Reports: No Symptoms Skin: Reports: No Symptoms Neurological: Reports: No Symptoms Psychiatric: Reports: No Symptoms - Patient Data Vitals - Most Recent: Last Vital Signs Temp 96.7 F 03/12/19 07:50 Pulse 67 03/12/19 07:50 Resp 16 03/12/19 07:50 BP 108/63 03/12/19 07:50 Pulse Ox 98 03/12/19 07:50 Weight - Most Recent: 175 lb 0.012 oz I&O - Last 24 Hours: Intake & Output 03/11/19 03/12/19 03/12/19 22:59 06:59 14:59 Intake Total 2962 Output Total 1550 Balance 1412 Lab Results Last 24 Hrs: Laboratory Results - last 24 hr 03/12/19 03/12/19 Range/Units 05:50 05:50 WBC 12.8 H (4.5-11.0) K/uL RBC 2.55 L (3.30-5.50) M/uL Hgb 8.2 L (12.0-15.0) g/dL Hct 25.4 L (36.0-48.0) % MCV 100 H (80-98) fL MCH 32 H (27-31) pg MCHC 32 (32-36) % Plt Count 214 (150-400) K/uL Sodium 136 L (140-148) mmol/L Potassium 4.1 (3.6-5.2) mmol/L Chloride 104 (100-108) mmol/L Carbon Dioxide 24 (21-32) mmol/L Anion Gap 12.1 (5.0-14.0) mmol/L BUN 16 (7-18) mg/dL Creatinine 0.8 (0.6-1.0) mg/dL Est Cr Clr Drug Dosing 89.67 mL/min Estimated GFR (MDRD) > 60 (>60) Glucose 93 (74-106) mg/dL Calcium 8.0 L (8.5-10.1) mg/dL Med Orders - Current: Current Medications Acetaminophen (Tylenol) 650 mg PO Q4H PRN PRN Reason: Pain (Mild 1-3) and fever Bisacodyl (Dulcolax) 10 mg RECTAL ONETIME ONE Stop: 03/12/19 11:01 Diphenhydramine HCl (Benadryl) 25 mg IVPUSH Q6H PRN PRN Reason: Itching Diphenhydramine HCl (Benadryl) 50 mg IVPUSH Q6H PRN PRN Reason: Itching Docusate Sodium (Colace) 100 mg PO BID SOPHY Ephedrine Sulfate (Ephedrine Sulfate) 10 mg IVPUSH ASDIRECTED PRN PRN Reason: Hypotension Fentanyl (Sublimaze) 50 mcg IVPUSH Q1H PRN PRN Reason: Pain (severe 7-10) Last Admin: 03/12/19 09:26 Dose: 50 mcg Hydroxyzine HCl (Vistaril) 75 mg IM Q4H PRN PRN Reason: Pain (moderate 4-6) Last Admin: 03/11/19 01:41 Dose: 75 mg Oxytocin/Sodium Chloride (Pitocin In Ns 20 Units/1,000 Ml) 20 units in 1,000 mls @ 6 mls/hr IV TITRATE SOPHY; Protocol Last Titration: 03/10/19 21:18 Dose: 0 munits/min, 0 mls/hr Lorazepam (Ativan) 1 mg IVPUSH Q4H PRN PRN Reason: Anxiety Last Admin: 03/11/19 14:55 Dose: 1 mg Naloxone HCl (Narcan) 0.1 mg IVPUSH ASDIRECTED PRN PRN Reason: Oversedation Naloxone HCl (Narcan) 0.1 mg IV ASDIRECTED PRN PRN Reason: decreased respiratory rate Ondansetron HCl (Zofran) 4 mg IVPUSH Q6H PRN PRN Reason: Nausea/Vomiting Oxycodone/Acetaminophen (Percocet 325-5 Mg) 1 - 2 tab PO Q4H PRN PRN Reason: Pain Last Admin: 03/12/19 07:42 Dose: 2 tab Prenat Multivit/[place]/Iron/Folic Ac ( Plus Iron) 1 each PO DAILY SOPHY Last Admin: 03/11/19 09:34 Dose: Not Given Sodium Chloride (Saline Flush) 10 ml FLUSH ASDIRECTED PRN PRN Reason: Keep Vein Open Sodium Chloride (Saline Flush) 10 ml FLUSH ASDIRECTED PRN PRN Reason: Keep Vein Open Discontinued Medications Hydrocodone Bitart/Acetaminophen ([place] 325-5 Mg) 2 tab PO Q4H PRN PRN Reason: Pain (moderate 4-6) Last Admin: 03/11/19 18:20 Dose: 2 tab Bupivacaine HCl (Marcaine 0.5%) Confirm Administered Dose 30 ml .ROUTE .STK-MED ONE Stop: 03/10/19 22:35 Cefazolin Sodium (Ancef) Confirm Administered Dose 2 gm .ROUTE .STK-MED ONE Stop: 03/10/19 22:35 Dexamethasone (Dexamethasone) Confirm Administered Dose 4 mg .ROUTE .STK-MED ONE Stop: 03/10/19 22:35 Ephedrine Sulfate (Ephedrine Sulfate) 10 mg IVPUSH ASDIRECTED PRN PRN Reason: Hypotension Epinephrine HCl (Epinephrine 1:10,000) 0 mg .XX ONETIME ONE Stop: 03/10/19 22:26 Last Admin: 03/10/19 22:25 Dose: 1 mg Fentanyl (Sublimaze) 100 mcg IVPUSH Q1H PRN PRN Reason: Pain (moderate 4-6) Fentanyl (Sublimaze) Confirm Administered Dose 250 mcg .ROUTE .STK-MED ONE Stop: 03/10/19 22:19 Fentanyl (Sublimaze) Confirm Administered Dose 100 mcg .ROUTE .STK-MED ONE Stop: 03/10/19 22:55 Fentanyl (Sublimaze) Confirm Administered Dose 100 mcg .ROUTE .STK-MED ONE Stop: 03/10/19 23:46 Fentanyl Citrate (Fentanyl In Ns 20 Mcg/Ml 30 Ml Receiving Coordinator) 0 mcg IV ASDIRECTED PRN; Protocol PRN Reason: Pain Last Admin: 03/11/19 15:54 Dose: 600 mcg Glycopyrrolate (Robinul) Confirm Administered Dose 1 mg .ROUTE .STK-MED ONE Stop: 03/10/19 22:35 Oxytocin/Sodium Chloride (Pitocin In Ns 20 Units/1,000 Ml) 20 unit in 1,000 mls @ 999 mls/hr IV ONETIME ONE; Protocol Stop: 03/10/19 09:30 Last Admin: 03/11/19 01:02 Dose: Not Given Penicillin G Potassium 2.5 (millunits/ Sodium Chloride) 50 mls @ 100 mls/hr IV Q4H SOPHY Stop: 03/11/19 00:33 Last Admin: 03/11/19 00:49 Dose: Not Given Penicillin G Potassium 5 (millunits/ Sodium Chloride) 100 mls @ 200 mls/hr IV ONETIME ONE Stop: 03/10/19 08:59 Last Admin: 03/10/19 09:33 Dose: 200 mls/hr Lactated Ringer's (Ringers, Lactated) 1,000 mls @ 125 mls/hr IV ASDIRECTED [facility] Last Admin: 03/11/19 09:33 Dose: 999 mls/hr Lactated Ringer's (Ringers, Lactated) 1,000 mls @ 999 mls/hr IV .BOLUS ONE Stop: 03/10/19 18:57 Last Admin: 03/10/19 18:00 Dose: 999 mls/hr Ropivacaine (Naropin 0.2%) Confirm Administered Dose 100 mls @ as directed .ROUTE .STK-MED ONE Stop: 03/10/19 18:45 Lactated Ringer's (Ringers, Lactated) 1,000 mls @ 125 mls/hr IV ASDIRECTED [facility] Magnesium Sulfate 2 gm/ Premix 50 mls @ 12.5 mls/hr IV ONETIME ONE Stop: 03/11/19 10:22 Last Admin: 03/11/19 06:57 Dose: 12.5 mls/hr Lactated Ringer's (Ringers, Lactated) 1,000 mls @ 0 mls/hr IV ASDIRECTED [facility] Misoprostol (Cytotec) Confirm Administered Dose 50 mcg .ROUTE .STK-MED ONE Stop: 03/10/19 08:20 Last Admin: 03/10/19 08:20 Dose: 50 mcg Misoprostol (Cytotec) 50 mcg VAG ONETIME ONE Stop: 03/10/19 14:54 Last Admin: 03/10/19 14:53 Dose: 50 mcg Misoprostol (Cytotec) 50 mcg VAG ONETIME ONE Stop: 03/10/19 08:20 Last Admin: 03/11/19 15:00 Dose: Not Given Neostigmine Methylsulfate (Neostigmine) Confirm Administered Dose 5 mg .ROUTE .STK-MED ONE Stop: 03/10/19 22:35 Ondansetron HCl (Zofran) Confirm Administered Dose 4 mg .ROUTE .STK-MED ONE Stop: 03/10/19 22:35 Oxytocin (Pitocin) Confirm Administered Dose 30 unit .ROUTE .STK-MED ONE Stop: 03/10/19 22:25 Propofol (Diprivan 20 Ml) 400 mg .ROUTE .STK-MED ONE Stop: 03/10/19 19:01 Rocuronium [place] (Zemuron) Confirm Administered Dose 50 mg .ROUTE .STK-MED ONE Stop: 03/10/19 22:25 Succinylcholine Chloride (Quelicin) 100 mg .ROUTE .STK-MED ONE Stop: 03/10/19 19:01 - Exam Wound/Incisions: Healing Well, Dressing Dry and Intact Quality Assessment: DVT Prophylaxis. No: Urine Catheter General: Alert, Oriented, Cooperative, No Acute Distress Lungs: Clear to Auscultation, Normal Respiratory Effort Cardiovascular: Regular Rate, Regular Rhythm GI/Abdominal Exam: Normal Bowel Sounds, Soft, Non-Tender, No Distention Extremities: Normal Inspection Skin: Warm, Dry, Intact Neurological: No New Focal Deficit Psy/Mental Status: Alert, Normal Affect, Normal Mood - Problem List & Annotations (1) Delivery by section SNOMED Code(s): 131156452 Code(s): [id number] - Status: Acute Current Visit: Yes - Problem List Review Problem List Initiated/Reviewed/Updated: Yes - My Orders Last 24 Hours: Active Orders 24 hr Category Date Time Status Ambulate [RC] QID Care 03/12/19 10:31 Active May Shower [RC] ASDIRECTED Care 03/12/19 10:30 Active Acetaminophen/oxyCODONE [Percocet 325-5 MG] Med 03/11/19 22:35 Active 1 - 2 tab PO Q4H PRN Bisacodyl [Dulcolax] Med 03/12/19 11:00 Once 10 mg RECTAL ONETIME ONE Docusate Sodium [Colace] Med 03/12/19 10:45 Active 100 mg PO BID LORazepam [Ativan] Med 03/11/19 14:44 Active 1 mg IVPUSH Q4H PRN Convert IV to Saline Lock [OM.PC] Routine Oth 03/12/19 10:30 Ordered Medication Orders Acetaminophen (Tylenol) 650 mg PO Q4H PRN PRN Reason: Pain (Mild 1-3) and fever Bisacodyl (Dulcolax) 10 mg RECTAL ONETIME ONE Stop: 03/12/19 11:01 Diphenhydramine HCl (Benadryl) 25 mg IVPUSH Q6H PRN PRN Reason: Itching Diphenhydramine HCl (Benadryl) 50 mg IVPUSH Q6H PRN PRN Reason: Itching Docusate Sodium (Colace) 100 mg PO BID SOPHY Ephedrine Sulfate (Ephedrine Sulfate) 10 mg IVPUSH ASDIRECTED PRN PRN Reason: Hypotension Fentanyl (Sublimaze) 50 mcg IVPUSH Q1H PRN PRN Reason: Pain (severe 7-10) Last Admin: 03/12/19 09:26 Dose: 50 mcg Admin: 03/11/19 15:46 Dose: 50 mcg Admin: 03/11/19 14:03 Dose: 50 mcg Admin: 03/11/19 06:58 Dose: 50 mcg Admin: 03/11/19 04:38 Dose: 50 mcg Admin: 03/11/19 03:32 Dose: 50 mcg Admin: 03/11/19 02:18 Dose: 50 mcg Admin: 03/11/19 00:33 Dose: 50 mcg Admin: 03/10/19 23:51 Dose: 50 mcg Hydroxyzine HCl (Vistaril) 75 mg IM Q4H PRN PRN Reason: Pain (moderate 4-6) Last Admin: 03/11/19 01:41 Dose: 75 mg Oxytocin/Sodium Chloride (Pitocin In Ns 20 Units/1,000 Ml) 20 units in 1,000 mls @ 6 mls/hr IV TITRATE SOPHY; Protocol Last Titration: 03/10/19 21:18 Dose: 0 munits/min, 0 mls/hr Admin: 03/10/19 20:45 Dose: 2 munits/min, 6 mls/hr Lorazepam (Ativan) 1 mg IVPUSH Q4H PRN PRN Reason: Anxiety Last Admin: 03/11/19 14:55 Dose: 1 mg Naloxone HCl (Narcan) 0.1 mg IVPUSH ASDIRECTED PRN PRN Reason: Oversedation Naloxone HCl (Narcan) 0.1 mg IV ASDIRECTED PRN PRN Reason: decreased respiratory rate Ondansetron HCl (Zofran) 4 mg IVPUSH Q6H PRN PRN Reason: Nausea/Vomiting Oxycodone/Acetaminophen (Percocet 325-5 Mg) 1 - 2 tab PO Q4H PRN PRN Reason: Pain Last Admin: 03/12/19 07:42 Dose: 2 tab Admin: 03/12/19 04:00 Dose: 2 tab Admin: 03/11/19 22:52 Dose: 2 tab Prenat Multivit/[place]/Iron/Folic Ac ( Plus Iron) 1 each PO DAILY SOPHY Last Admin: 03/11/19 09:34 Dose: Not Given Sodium Chloride (Saline Flush) 10 ml FLUSH ASDIRECTED PRN PRN Reason: Keep Vein Open Sodium Chloride (Saline Flush) 10 ml FLUSH ASDIRECTED PRN PRN Reason: Keep Vein Open - Assessment Assessment (Free Text/Narrative):: Eating slowly. No flatus nor BM. She is belching. Pain controls requiring oral and IV narcotics. Hgb 8.2. - Plan Plan (Free Text/Narrative):: Dulcolax suppository. Saline lock IV. Percocet criteria. Encourage ambulation.
[2019-03-12] MEDS ORDERED: Bisacodyl 10 MG Supp RECTAL ONE (11:00)
[2019-03-12] MEDS: Prenatal Multivitamin with Calcium/Folic Acid/Iron Tab PO SCH (12:55)
[2019-03-12] MEDS: Docusate Sodium 100 MG Cap PO SCH ×2 (12:55→20:15)
[2019-03-13] MEDS: fentaNYL 100 MCG/2 ML SDV IVPUSH PRN ×3 (00:01→13:17)
[2019-03-13] MEDS: Acetaminophen/oxyCODONE 325-5 MG Tab PO PRN ×2 (01:38→08:25)
[2019-03-13 08:23] VITALS: PULSE 98
[2019-03-13] MEDS: Prenatal Multivitamin with Calcium/Folic Acid/Iron Tab PO SCH (08:27)
[2019-03-13] MEDS: Docusate Sodium 100 MG Cap PO SCH (08:27)
--- NOTE | 2019-03-13 10:45 | PCM.DCSUM1 ---
Discharge Summary - Hospital Course Free Text/Narrative:: This 23 year old white female was admitted on March 10, 2019 at term with her second child in labor. She was doing well when suddenly heart tones were lost. A STAT section was called, but her boy suffered demise. A still born child was delivered. Resuscitation was attempted but unsuccessful. The child was referred for donation with two heart valves implanted in two other children. The incision was done through a lower midline. Anesthesia was rapid sequence general endotracheal. She received Ancef 2 grams IV preoperatively. Post operatively she rapidly was able to tolerate a diet. She has passes gas but not stool yet. She feels fine and is discharged at this time in good condition. Diagnosis: Stroke: No - Discharge Data Discharge Date: 03/13/19 Discharge Disposition: Home, Self-Care 01 Condition: Good - Discharge Diagnosis/Problem(s) (1) Delivery by section SNOMED Code(s): 921035381 ICD Code: [id number] - Status: Acute Current Visit: Yes - Patient Summary/Data Operative Procedure(s) Performed: section Consults: Consultations 03/10/19 23:18 Respiratory Care Assess and Treatment [CONS] Routine Comment: Physician Instructions: Post-Op Pneumonia Prevention Hospital Course: See above narrative. - Patient Instructions Diet: Usual Diet as Tolerated Activity: No Lifting Over 10 Pounds (For six weeks from surgery), No Strenuous Activities (For six weeks from surgery) Driving: Do Not Drive (Do not drive while taking narcotic pain medication) Showering/Bathing: May Shower, No Tub Bathing/Swimming Notify Provider of: Fever, Increased Pain, Swelling and Redness, Drainage, Nausea and/or Vomiting - Discharge Plan *PRESCRIPTION DRUG MONITORING PROGRAM REVIEWED*: No *COPY OF PRESCRIPTION DRUG MONITORING REPORT IN PATIENT RENAE: No Prescriptions/Med Rec: Acetaminophen/oxyCODONE [Percocet 325-5 MG] 1 - 2 tab PO Q4H PRN #30 tablet PRN Reason: Pain Home Medications: Home Meds [id number]/Ferrous Fumarate/FA [ Tablet] 1 tab PO DAILY 12/02/16 [History] Acetaminophen/oxyCODONE [Percocet 325-5 MG] 1 - 2 tab PO Q4H PRN #30 tablet [Rx] Docusate Sodium [Colace] 100 mg PO BID cap 03/13/19 [Rx] Referrals: Jonah Valdovinos MD [Physician] - (See me in [facility] Wednesday, March 20, 2019.) - Discharge Summary/Plan Comment DC Time >30 min.: Yes Discharge Summary/Plan Comment: See above narrative. - Patient Data Vitals - Most Recent: Last Vital Signs Temp 97.2 F 03/13/19 08:20 Pulse 98 03/13/19 08:20 Resp 18 03/13/19 08:20 BP 129/66 03/13/19 08:20 Pulse Ox 98 03/13/19 08:20 Weight - Most Recent: 175 lb 0.012 oz I&O - Last 24 hours: Intake & Output 03/12/19 03/13/19 03/13/19 22:59 06:59 14:59 Intake Total 400 Output Total 300 Balance 100 Med Orders - Current: Current Medications Acetaminophen (Tylenol) 650 mg PO Q4H PRN PRN Reason: Pain (Mild 1-3) and fever Diphenhydramine HCl (Benadryl) 25 mg IVPUSH Q6H PRN PRN Reason: Itching Diphenhydramine HCl (Benadryl) 50 mg IVPUSH Q6H PRN PRN Reason: Itching Docusate Sodium (Colace) 100 mg PO BID SOPHY Last Admin: 03/13/19 08:27 Dose: 100 mg Ephedrine Sulfate (Ephedrine Sulfate) 10 mg IVPUSH ASDIRECTED PRN PRN Reason: Hypotension Fentanyl (Sublimaze) 50 mcg IVPUSH Q1H PRN PRN Reason: Pain (severe 7-10) Last Admin: 03/13/19 09:16 Dose: 50 mcg Hydroxyzine HCl (Vistaril) 75 mg IM Q4H PRN PRN Reason: Pain (moderate 4-6) Last Admin: 03/11/19 01:41 Dose: 75 mg Oxytocin/Sodium Chloride (Pitocin In Ns 20 Units/1,000 Ml) 20 units in 1,000 mls @ 6 mls/hr IV TITRATE SOPHY; Protocol Last Titration: 03/10/19 21:18 Dose: 0 munits/min, 0 mls/hr Lorazepam (Ativan) 1 mg IVPUSH Q4H PRN PRN Reason: Anxiety Last Admin: 03/11/19 14:55 Dose: 1 mg Naloxone HCl (Narcan) 0.1 mg IVPUSH ASDIRECTED PRN PRN Reason: Oversedation Naloxone HCl (Narcan) 0.1 mg IV ASDIRECTED PRN PRN Reason: decreased respiratory rate Ondansetron HCl (Zofran) 4 mg IVPUSH Q6H PRN PRN Reason: Nausea/Vomiting Oxycodone/Acetaminophen (Percocet 325-5 Mg) 1 - 2 tab PO Q4H PRN PRN Reason: Pain Last Admin: 03/13/19 08:25 Dose: 2 tab Prenat Multivit/Sound Engineering Technician/Iron/Folic Ac ( Plus Iron) 1 each PO DAILY SOPHY Last Admin: 03/13/19 08:27 Dose: 1 each Sodium Chloride (Saline Flush) 10 ml FLUSH ASDIRECTED PRN PRN Reason: Keep Vein Open Sodium Chloride (Saline Flush) 10 ml FLUSH ASDIRECTED PRN PRN Reason: Keep Vein Open Discontinued Medications Hydrocodone Bitart/Acetaminophen ([place] 325-5 Mg) 2 tab PO Q4H PRN PRN Reason: Pain (moderate 4-6) Last Admin: 03/11/19 18:20 Dose: 2 tab Bisacodyl (Dulcolax) 10 mg RECTAL ONETIME ONE Stop: 03/12/19 11:01 Last Admin: 03/12/19 12:55 Dose: 10 mg Bupivacaine HCl (Marcaine 0.5%) Confirm Administered Dose 30 ml .ROUTE .STK-MED ONE Stop: 03/10/19 22:35 Cefazolin Sodium (Ancef) Confirm Administered Dose 2 gm .ROUTE .STK-MED ONE Stop: 03/10/19 22:35 Dexamethasone (Dexamethasone) Confirm Administered Dose 4 mg .ROUTE .STK-MED ONE Stop: 03/10/19 22:35 Ephedrine Sulfate (Ephedrine Sulfate) 10 mg IVPUSH ASDIRECTED PRN PRN Reason: Hypotension Epinephrine HCl (Epinephrine 1:10,000) 0 mg .XX ONETIME ONE Stop: 03/10/19 22:26 Last Admin: 03/10/19 22:25 Dose: 1 mg Fentanyl (Sublimaze) 100 mcg IVPUSH Q1H PRN PRN Reason: Pain (moderate 4-6) Fentanyl (Sublimaze) Confirm Administered Dose 250 mcg .ROUTE .STK-MED ONE Stop: 03/10/19 22:19 Fentanyl (Sublimaze) Confirm Administered Dose 100 mcg .ROUTE .STK-MED ONE Stop: 03/10/19 22:55 Fentanyl (Sublimaze) Confirm Administered Dose 100 mcg .ROUTE .STK-MED ONE Stop: 03/10/19 23:46 Fentanyl Citrate (Fentanyl In Ns 20 Mcg/Ml 30 Ml Senior Audit Manager) 0 mcg IV ASDIRECTED PRN; Protocol PRN Reason: Pain Last Admin: 03/11/19 15:54 Dose: 600 mcg Glycopyrrolate (Robinul) Confirm Administered Dose 1 mg .ROUTE .STK-MED ONE Stop: 03/10/19 22:35 Oxytocin/Sodium Chloride (Pitocin In Ns 20 Units/1,000 Ml) 20 unit in 1,000 mls @ 999 mls/hr IV ONETIME ONE; Protocol Stop: 03/10/19 09:30 Last Admin: 03/11/19 01:02 Dose: Not Given Penicillin G Potassium 2.5 (millunits/ Sodium Chloride) 50 mls @ 100 mls/hr IV Q4H [facility] Stop: 03/11/19 00:33 Last Admin: 03/11/19 00:49 Dose: Not Given Penicillin G Potassium 5 (millunits/ Sodium Chloride) 100 mls @ 200 mls/hr IV ONETIME ONE Stop: 03/10/19 08:59 Last Admin: 03/10/19 09:33 Dose: 200 mls/hr Lactated Ringer's (Ringers, Lactated) 1,000 mls @ 125 mls/hr IV ASDIRECTED [facility] Last Admin: 03/11/19 09:33 Dose: 999 mls/hr Lactated Ringer's (Ringers, Lactated) 1,000 mls @ 999 mls/hr IV .BOLUS ONE Stop: 03/10/19 18:57 Last Admin: 03/10/19 18:00 Dose: 999 mls/hr Ropivacaine (Naropin 0.2%) Confirm Administered Dose 100 mls @ as directed .ROUTE .STK-MED ONE Stop: 03/10/19 18:45 Lactated Ringer's (Ringers, Lactated) 1,000 mls @ 125 mls/hr IV ASDIRECTED [facility] Magnesium Sulfate 2 gm/ Premix 50 mls @ 12.5 mls/hr IV ONETIME ONE Stop: 03/11/19 10:22 Last Admin: 03/11/19 06:57 Dose: 12.5 mls/hr Lactated Ringer's (Ringers, Lactated) 1,000 mls @ 0 mls/hr IV ASDIRECTED SOPHY Misoprostol (Cytotec) Confirm Administered Dose 50 mcg .ROUTE .STK-MED ONE Stop: 03/10/19 08:20 Last Admin: 03/10/19 08:20 Dose: 50 mcg Misoprostol (Cytotec) 50 mcg VAG ONETIME ONE Stop: 03/10/19 14:54 Last Admin: 03/10/19 14:53 Dose: 50 mcg Misoprostol (Cytotec) 50 mcg VAG ONETIME ONE Stop: 03/10/19 08:20 Last Admin: 03/11/19 15:00 Dose: Not Given Neostigmine Methylsulfate (Neostigmine) Confirm Administered Dose 5 mg .ROUTE .STK-MED ONE Stop: 03/10/19 22:35 Ondansetron HCl (Zofran) Confirm Administered Dose 4 mg .ROUTE .STK-MED ONE Stop: 03/10/19 22:35 Oxytocin (Pitocin) Confirm Administered Dose 30 unit .ROUTE .STK-MED ONE Stop: 03/10/19 22:25 Propofol (Diprivan 20 Ml) 400 mg .ROUTE .STK-MED ONE Stop: 03/10/19 19:01 Rocuronium [place] (Zemuron) Confirm Administered Dose 50 mg .ROUTE .STK-MED ONE Stop: 03/10/19 22:25 Succinylcholine Chloride (Quelicin) 100 mg .ROUTE .STK-MED ONE Stop: 03/10/19 19:01
[2019-03-13 13:10] VITALS: BP 127/59
== END 2019-03-13 14:15 | disposition home or self-care (01) | DRG 788 ==
LOC: JP.OB 07:46 → OBSVTOIN 22:19 → JP.OB 22:19 → JP.MS 23:30
PROVIDERS: ADMIT Nurse Practitioner Family; ATTEND Nurse Practitioner Family
PROC: 10D00Z1 Extraction of Products of Conception, Low, Open Approach (ICD-10-PCS; principal; 2019-03-10)
PROC: 3E0P7VZ Introduction of Hormone into Female Reproductive, Via Natural or Artificial Opening (ICD-10-PCS; 2019-03-10)
PROC: 3E033VJ Introduction of Other Hormone into Peripheral Vein, Percutaneous Approach (ICD-10-PCS; 2019-03-10)
PROC: 6A550ZT Pheresis of Cord Blood Stem Cells, Single (ICD-10-PCS; 2019-03-10)
PROC: 00HU33Z Insertion of Infusion Device into Spinal Canal, Percutaneous Approach (ICD-10-PCS; 2019-03-10)
PROC: 3E0R3BZ Introduction of Anesthetic Agent into Spinal Canal, Percutaneous Approach (ICD-10-PCS; 2019-03-10)
DX: O36.4XX0 Maternal care for intrauterine death, not applicable or unspecified (principal); O99.824 Streptococcus B carrier state complicating childbirth; O99.334 Smoking (tobacco) complicating childbirth; F17.210 Nicotine dependence, cigarettes, uncomplicated; O76 Abnormality in fetal heart rate and rhythm complicating labor and delivery; O69.81X0 Labor and delivery complicated by cord around neck, without compression, not applicable or unspecified; Z3A.40 40 weeks gestation of pregnancy; Z37.0 Single live birth; O90.89 Other complications of the puerperium, not elsewhere classified; E83.42 Hypomagnesemia; R00.8 Other abnormalities of heart beat
CPT/HCPCS: 36415; 51702; 59409; 74018; 80048; 80305-QW; 81001; 83735; 85025; 85027; 86880; 86900; 86901; 88307; 94762; 99465; A9270-GY; J0171; J0330; J0690; J1100; J2060; J2405; J2540; J2590; J2704; J2710; J2795; J3010; J3410; J3475; J3490; J7030; J7050; J7120